=== PATIENT | female | born 1950 | race Caucasian/White ===

== ENCOUNTER → 2018-05-19 10:29 | Outpatient (CLI) | payer MEDICARE, SELFPAY ==
--- NOTE | 2018-05-19 10:41 | MM_ITS ---
MM Dig screening mamm BI w/CAD CAD Screening COMPARISON: Digital mammograms with CAD 01/01/2017 and is mammograms with CAD 12/10/2010 INDICATION: There is no personal or family history of breast cancer TECHNIQUE: Standard CC and MLO images were obtained. R2 CAD reviewed. FINDINGS: The breasts are composed primarily of fat with minimal scattered fibroglandular densities in each breast. There is a mole marker left breast. There is no suspicious lesion in either breast and there are no suspicious microcalcifications. IMPRESSION: Fatty type breast parenchyma with no suspicious lesion seen BI-RADS Category: 1 Negative RECOMMENDED FOLLOW-UP: 1YR - 1 YEAR FOLLOW-UP (A letter has been sent to the patient regarding results of the study.)
== END ==
PROVIDERS: PCP Family Medicine; Visit Provider Family Medicine
DX: Z12.31 Encounter for screening mammogram for malignant neoplasm of breast (principal)
CPT/HCPCS: 77067

== ENCOUNTER 2020-03-13 09:00 | Outpatient (RCR) | payer MEDICARE, SELFPAY | END 2020-03-13 09:05 | disposition home or self-care (01) | LOC: OT 09:00 | PROVIDERS: Visit Provider Family Medicine | DX: M75.101 Unspecified rotator cuff tear or rupture of right shoulder, not specified as traumatic (principal) | CPT/HCPCS: 97014; 97035; 97110; 97165; 97530; G0283 ==

== ENCOUNTER → 2020-09-02 15:31 | Outpatient (CLI) | payer MEDICARE, SELFPAY ==
[2020-09-02 17:13] LABS: Chloride 104 mmol/L (98-107)
[2020-09-02 17:14] LABS: Potassium 4.6 mmoL/L (3.5-5.1); Sodium 137 mmol/L (136-145)
[2020-09-02 17:16] LABS: Alanine Aminotransferase 28 U/L (12-78); Alkaline Phosphatase 61 U/L (38-126); Amylase 67 U/L (30-110); Anion Gap 12.6 mEq/L (5-15); Aspartate Amino Transferase 48 U/L (14-36); Bilirubin,Total 0.9 mg/dl (0.2-1.3); Blood Urea Nitrogen 25 mg/dl (7-17); Carbon Dioxide 25 mmol/L (22.0-30.0); Estimated Glomerular Filt Rate 55 ml/min (>60); GFR (African American) 67 ML/MIN (>60)
[2020-09-02 17:17] LABS: Albumin Level 4.7 g/dl (3.5-5.0); Albumin/Globulin Ratio 1.6 (1.1-1.8); Calcium 10.2 mg/dl (8.4-10.2); Globulin 2.9 g/dL (1.3-3.2); Glucose 104 mg/dl (74-100); Lipase 146 U/L (23-300); Total Protein,Serum 7.6 g/dl (6.3-8.2)
[2020-09-02 22:37] LABS: Basophils # 0.1 K/mm3 (0-0.2); Basophils % 0.9 % (0.1-2.0); Eosinophils # 0.1 K/mm3 (0.0-0.4); Eosinophils % 1.2 % (0.1-12.0); Hematocrit 44.4 % (37.0-47.0); Hemoglobin 14.1 g/dL (12.2-16.2); Lymphocytes # 2.6 K/mm3 (0.7-4.5); Lymphocytes % 28.3 % (10-50); Mean Corpuscular HGB Conc 31.7 g/dL (31.8-35.4); Mean Corpuscular Hemoglobin 28.2 pg (27.0-31.2); Mean Platelet Volume 10.1 fl (7.4-10.4); Monocytes # 0.7 K/mm3 (0.1-1.0); Monocytes % 7.8 % (1.7-9.3); Neutrophils # 5.6 K/mm3 (1.8-7.8); Neutrophils % 61.8 % (37.0-80.0); Platelet Count 327 K/mm3 (142-424); Red Blood Count 4.99 M/mm3 (4.20-5.40); Red Cell Distribution Width 14.4 % (11.5-17.5)
[2020-09-04 17:21] LABS: H. pylori Breath Test Negative (Negative)
== END ==
PROVIDERS: Visit Provider Nurse Practitioner Family
DX: R10.84 Generalized abdominal pain (principal); R10.13 Epigastric pain
CPT/HCPCS: 36415; 80053; 82150; 83013; 83690; 85025

== ENCOUNTER → 2021-11-07 11:56 | Outpatient (CLI) | payer MEDICARE, SELFPAY ==
--- NOTE | 2021-11-07 12:06 | XR_ITS ---
FINAL REPORT CLINICAL HISTORY: RIGHT HIP PAIN FINDINGS: RIGHT HIP Two views of the right hip demonstrate no acute fracture or dislocation. There is mild degenerative change. The visualized bony structures are well aligned. No soft tissue abnormality is seen. IMPRESSION: Mild degenerative change with no acute bony abnormality. Reviewed, Interpreted and Dictated by Shadi Amaral III, MD Transcribed by Magdalene Browne Authenticated and [facility]
--- NOTE | 2021-11-07 12:06 | XR_ITS ---
FINAL REPORT CLINICAL HISTORY: ACUTE PAIN OF RIGHT KNEE FINDINGS: Three views of the right knee reveal no evidence of fracture or dislocation. The bony alignment is normal. There is mild degenerative change. There is no evidence of joint effusion. No localized soft tissue abnormality is identified. IMPRESSION: Mild degenerative change with no acute abnormality identified. Reviewed, Interpreted and Dictated by Shadi Amaral III, MD Transcribed by Magdalene Browne Authenticated and [facility]
== END ==
PROVIDERS: PCP Nurse Practitioner Family; Visit Provider Nurse Practitioner Family
DX: M25.561 Pain in right knee (principal); M25.551 Pain in right hip
CPT/HCPCS: 73502; 73562

== ENCOUNTER → 2021-11-27 11:03 | Outpatient (CLI) | payer MEDICARE, SELFPAY ==
--- NOTE | 2021-11-27 11:18 | XR_ITS ---
FINAL REPORT CLINICAL HISTORY: back pain FINDINGS: LUMBAR SPINE 5 views of the lumbar spine were obtained. There is no evidence of fracture or dislocation. There is levoscoliosis. There is 8 mm of left lateral subluxation of L4 on L5. There is moderate and severe degenerative change. No paraspinous soft tissue abnormalities identified. IMPRESSION: Moderate and severe degenerative change. Left lateral subluxation of L4 on L5. Reviewed, Interpreted and Dictated by Shadi Amaral III, MD Transcribed by Meenu Wiley Authenticated and . [facility]
[2021-11-27 12:10] LABS: Basophils # 0.1 K/mm3 (0-0.2); Basophils % 0.8 % (0.1-2.0); Eosinophils # 0.4 K/mm3 (0.0-0.4); Eosinophils % 4.2 % (0.1-12.0); Hematocrit 41.6 % (37.0-47.0); Hemoglobin 13.5 g/dL (12.2-16.2); Lymphocytes # 2.5 K/mm3 (0.7-4.5); Lymphocytes % 28.5 % (10-50); Mean Corpuscular HGB Conc 32.5 g/dL (31.8-35.4); Mean Corpuscular Hemoglobin 28.2 pg (27.0-31.2); Mean Corpuscular Volume 86.5 fl (81-99); Mean Platelet Volume 7.9 fl (7.4-10.4); Monocytes # 0.5 K/mm3 (0.1-1.0); Monocytes % 5.9 % (1.7-9.3); Neutrophils # 5.4 K/mm3 (1.8-7.8); Neutrophils % 60.6 % (37.0-80.0); Platelet Count 327 K/mm3 (142-424); Red Blood Count 4.81 M/mm3 (4.20-5.40); Red Cell Distribution Width 13.9 % (11.5-17.5); White Blood Count 8.8 K/mm3 (4.8-10.8)
[2021-11-27 12:37] LABS: Chloride 103 mmol/L (98-107); Sodium 136 mmol/L (136-145)
[2021-11-27 12:38] LABS: Potassium 4.5 mmoL/L (3.5-5.1)
[2021-11-27 12:40] LABS: Alanine Aminotransferase 21 U/L (12-78); Albumin Level 4.5 g/dl (3.5-5.0); Albumin/Globulin Ratio 1.7 (1.1-1.8); Alkaline Phosphatase 79 U/L (38-126); Anion Gap 11.5 mEq/L (5-15); Aspartate Amino Transferase 35 U/L (14-36); Bilirubin,Total 0.6 mg/dl (0.2-1.3); Blood Urea Nitrogen 20 mg/dl (7-17); Calcium 10.2 mg/dl (8.4-10.2); Carbon Dioxide 26 mmol/L (22.0-30.0); Estimated Glomerular Filt Rate 62 ml/min (>60); GFR (African American) 75 ML/MIN (>60); Globulin 2.7 g/dL (1.3-3.2); Glucose 97 mg/dl (74-100); Total Protein,Serum 7.2 g/dl (6.3-8.2)
[2021-11-27 13:56] LABS: Vitamin B12 400 pg/mL (239-931)
== END ==
PROVIDERS: PCP Nurse Practitioner Family; Visit Provider Specialist
DX: G62.9 Polyneuropathy, unspecified (principal); M54.9 Dorsalgia, unspecified; T63.461A Toxic effect of venom of wasps, accidental (unintentional), initial encounter
CPT/HCPCS: 36415; 72110; 80053; 82607; 82746; 85025

== ENCOUNTER → 2021-12-10 13:05 | Outpatient (CLI) | payer MEDICARE, SELFPAY ==
--- NOTE | 2021-12-10 13:05 | MR_ITS ---
FINAL REPORT CLINICAL HISTORY: lower back pain pt c/o of right hip and knee pain x 2 months frequent falls FINDINGS: Multiplanar MR imaging of the lumbar spine was performed without contrast. There is 30 degrees of lumbar scoliosis convex to the left. On the sagittal T2-weighted images, there is abnormal decreased signal throughout the lumbar discs. There is moderate loss of disc height at L2-L3 through L5-S1. The vertebrae are of normal height. The vertebral alignment is normal. L1-2: There is no significant canal stenosis or neural foraminal narrowing. L2-3: There is a moderate diffuse disc bulge with posterolateral disc protrusions. There is moderate to high-grade right and moderate left neural foraminal narrowing. L3-4: There is a moderate diffuse disc bulge with endplate hypertrophy. There is moderate to high-grade right and mild left neural foraminal narrowing. L4-5: There is a moderate diffuse disc bulge with a broad-based midline disc protrusion. There is moderate to high-grade right and high-grade left neural foraminal narrowing. L5-S1: There is a diffuse disc bulge with endplate hypertrophy eccentric to the left and asymmetric left facet hypertrophy. There is high-grade left neural foraminal narrowing. IMPRESSION: High-grade left neural foraminal narrowing at L4-5 and L5-S1. Neural foraminal compromise on the right at L2-L3 and L3-L4. Reviewed, Interpreted and Dictated by Joshua Negro MD Transcribed by Alex Richardson Authenticated and [facility]
== END ==
PROVIDERS: PCP Nurse Practitioner Family; Visit Provider Specialist
DX: M47.27 Other spondylosis with radiculopathy, lumbosacral region (principal)
CPT/HCPCS: 72148; 76376

== ENCOUNTER → 2022-10-20 08:53 | Outpatient (CLI) | payer MEDICARE, SELFPAY ==
--- NOTE | 2022-10-20 08:59 | XR_ITS ---
FINAL REPORT TECHNIQUE: Bone densitometry calculations of the lumbar spine and left hip were obtained. CLINICAL HISTORY: . POST MENOPAUSAL SCREENING FINDINGS: Using L1-4, the bone mineral density of the spine is 0.901 g/cm2, corresponding to T-score of -1.3. This is likely falsely elevated secondary to hypertrophic change. Using the left hip, the bone mineral density of the femoral neck is 0.505 g/cm2, corresponding to a T-score of -3.1. Using the right hip, the bone mineral density of the femoral neck is 0.493 g/cm2, corresponding to a T-score of -3.2. NOTE: T-score: Standard deviation compared with peak bone mass of young adult mean. *Following the recommendations of the International Society of Bone Densitometry, classification of hip BMD is based on the lower of two T-scores; total hip or femoral neck. IMPRESSION: Osteoporosis: Lowest T-score is at or below -2.5. This patient''s T-score meets the World Health Organization criteria for osteoporosis. FRAX data was not reported because some of the T-scores are at or below-2.5. Reviewed, Interpreted and Dictated by Shadi Amaral III, MD Transcribed by Rosalind Sullivan Authenticated and [facility]
== END ==
PROVIDERS: PCP Nurse Practitioner Family; Visit Provider Nurse Practitioner Family
DX: M81.0 Age-related osteoporosis without current pathological fracture (principal)
CPT/HCPCS: 77080

== ENCOUNTER → 2022-11-10 11:45 | Outpatient (POV) | payer MEDICARE, SELFPAY | PROVIDERS: Visit Provider Dermatology | DX: Z00.00 Encounter for general adult medical examination without abnormal findings (principal) ==

== ENCOUNTER 2022-11-19 09:54 | Outpatient (CLI) | payer MEDICARE, SELFPAY ==
[2022-11-19 10:15] VITALS: BP 146/75; PULSE 72; RESP 18; O2SAT 99
== END 2022-11-19 10:25 | disposition home or self-care (01) ==
LOC: INF 09:56
PROVIDERS: PCP Nurse Practitioner Family; Visit Provider Nurse Practitioner Family
DX: M81.0 Age-related osteoporosis without current pathological fracture (principal)
CPT/HCPCS: 96372; J0897

== ENCOUNTER → 2023-01-12 14:44 | Outpatient (CLI) | payer MEDICARE, SELFPAY ==
--- NOTE | 2023-01-12 14:54 | XR_ITS ---
FINAL REPORT CLINICAL HISTORY: PAIN FINDINGS: Right hip Three views were obtained. There is no acute fracture or dislocation. There are mild degenerative changes. No soft tissue abnormality is identified. IMPRESSION: Mild degenerative changes. Reviewed, Interpreted and Dictated by Shadi Amaral III, MD Transcribed by Rosalind Sullivan Authenticated and [facility]
--- NOTE | 2023-01-12 14:54 | XR_ITS ---
FINAL REPORT CLINICAL HISTORY: PAIN FINDINGS: LUMBAR SPINE Five views demonstrate no acute fracture. There are severe degenerative changes. Levoscoliosis is identified. There is 9 mm of left lateral subluxation of L4 on 5. Multilevel facet arthropathy is identified. IMPRESSION: Severe degenerative changes. Reviewed, Interpreted and Dictated by Shadi Amaral III, MD Transcribed by Rosalind Sullivan Authenticated and [facility]
--- NOTE | 2023-01-12 14:54 | XR_ITS ---
FINAL REPORT CLINICAL HISTORY: PAIN FINDINGS: Left hip Three views were obtained. There is no acute fracture or dislocation. There are mild degenerative changes. No soft tissue abnormality is identified. IMPRESSION: Mild degenerative changes. Reviewed, Interpreted and Dictated by Shadi Amaral III, MD Transcribed by Rosalind Sullivan Authenticated and [facility]
== END ==
PROVIDERS: PCP Nurse Practitioner Family; Visit Provider Nurse Practitioner Family
DX: M54.50 Low back pain, unspecified (principal); M25.551 Pain in right hip; M25.552 Pain in left hip
CPT/HCPCS: 72110; 73502

== ENCOUNTER → 2023-01-22 14:31 | Outpatient (CLI) | payer MEDICARE, SELFPAY ==
--- NOTE | 2023-01-22 14:38 | MR_ITS ---
FINAL REPORT CLINICAL HISTORY: DORSALGIA OF LUMBAR REGION x 1 week unable to move right leg COMPARISON: 12/10/2021 FINDINGS: Multiplanar MR imaging of the lumbar spine was performed without contrast. On the sagittal T2-weighted images, there is abnormal decreased signal throughout the lumbar discs. The vertebrae are of normal height. There is a 40 degree scoliosis of the lumbar spine convex to the patient's left. There is loss of height of the L2-3, L3-4, and L4-5 discs. L1-2: There is a left posterolateral disc protrusion with moderate bilateral neural foraminal narrowing. L2-3: There is a right posterolateral disc protrusion with moderate bilateral neural foraminal narrowing. L3-4: There is a right posterolateral disc protrusion, with severe bilateral neural foraminal narrowing. L4-5: There is a large annular bulge with facet osteoarthropathy and severe bilateral neural foraminal narrowing. L5-S1: There is endplate heterotrophic change eccentric and to the left producing severe left neural foraminal narrowing. IMPRESSION: 40 degree degenerative scoliosis convex to the left. Multilevel lumbar degenerative change with disc space narrowing at multiple levels and neural foraminal narrowing at multiple levels. The neural foraminal narrowing is most severe on the right side at the L2-3, L3-4, and L4-5 levels, and most severe on the left side at the L1-2, L4-5 and L5-S1 levels. Reviewed, Interpreted and Dictated by Joshua Negro MD Transcribed by Candis Ramirez Authenticated and [facility]
== END ==
LOC: RAD 14:32
PROVIDERS: PCP Nurse Practitioner Family; Visit Provider Nurse Practitioner Family
DX: M54.50 Low back pain, unspecified (principal); M54.16 Radiculopathy, lumbar region
CPT/HCPCS: 72148; 76376

== ENCOUNTER → 2023-02-24 09:06 | Outpatient (POV) | payer MEDICARE, SELFPAY ==
--- NOTE | 2023-02-24 09:40 | EXP.PAIN.OV ---
HPI Data of Consult Patient: new to practice Consult date: 02/24/23 Requesting Physician: Radha Martinez APRN Primary Care Provider: Ro Rider APRN Consult Narrative Reason for consult: Low back pain History of present illness: Ms. Wiley is a 72 year old female who presents today as a new patient. She is a referral from Brie Rider's office. Today she rates her pain an 8 out of 10. Patient states her pain is all in her low back with radiating symptoms into her lower extremities. Patient states this has been going on at least for 5 years and unrelated to any specific trauma or injury. She does describe this as a achy sensation that is worse with walking or increased activity. She states she does get some improvement when she rests or sits. She states she frequently lays back in her recliner at home. Patient has tried [id number] Tylenol and ibuprofen along with heat and ice with minimal relief. Patient states she has had physical therapy with no additional change to her pain. She states that she used to walk very actively however due to her worsening pain that she has been able to do this activity/exercise as often. 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 Patient denies any previous surgery or injection history. Patient does state that she is unsure if she wants to proceed forward with any type of injection or medication. She does state that she is not interested in any physical therapy. She does state that she was tried on tramadol 50 mg 3 times a day and that at her last visit they had talked about a medication of cyclobenzaprine however this was not given to her. She states that she did get a letter in the mail stating that it had been approved. Her Pablo is [id number]. Its been reviewed and appropriate. CC: Radha Martinez APRN [facility] Disclaimer: The information contained in this section may have been updated after the patient was seen, as this information can be updated by other users. Medical History (Updated 02/24/23 @ 10:33 by Radha Martinez APRN) Depression Hypertension Osteoporosis Surgical History (Updated 01/29/23 @ 11:59 by Valdo Joy LPN) H/O section History of cholecystectomy Family History (Updated 09/01/23 @ 12:01 by Valdo Joy LPN) Father Stroke Diabetes Mother Hypertension Alzheimer disease Social History (Updated 01/29/23 @ 11:51 by Valdo Joy LPN) Smoking Status: Never smoker alcohol intake: never substance use type: denies use current occupational status: retired Travel in the last 8 weeks: None household members: spouse housing: house Review of Systems Review of Systems Review of systems:: pertinent systems reviewed and negative unless documented below Review of systems (narrative): Review of Systems: General: No recent weight changes, no fever, no sleep disturbances Respiratory: No cough, no shortness of air, no recurring pulmonary infections Cardiovascular/peripheral vascular: No chest pain, no palpitations, no edema, no shortness of breath Gastrointestinal: No new onset incontinence, normal bowel movements reported Genitourinary: No new onset incontinence Musculoskeletal: Low back pain, bilateral leg pain Psychiatric: [Normal mood/affect] Neurological: [Denies weakness in extremities], [denies balance issues] Meds Home Medications and Allergies Home Medications Medication Instructions Recorded Confirmed Type alendronate 70 mg tablet 70 mg PO WEEKLY bones 01/01/18 01/29/23 History aspirin 81 mg tablet,delayed 81 mg PO DAILY Heart disease 01/01/18 01/29/23 History release omeprazole 20 mg capsule,delayed 20 mg pe PO DAILY GERD 01/01/18 01/29/23 History release amlodipine 2.5 mg tablet 2.5 mg PO DAILY 11/27/21 01/29/23 History bisoprolol fumarate 5 mg tablet 5 mg PO DAILY 11/27/21 01/29/23 History cholecalciferol (vitamin
[2023-02-24 12:32] VITALS: BP 140/84; PULSE 59; RESP 18; O2SAT 95; BMI 29.9
== END ==
PROVIDERS: PCP Nurse Practitioner Family; Visit Provider Nurse Practitioner Family
DX: M54.50 Low back pain, unspecified; G89.29 Other chronic pain; M48.062 Spinal stenosis, lumbar region with neurogenic claudication; M51.16 Intervertebral disc disorders with radiculopathy, lumbar region
CPT/HCPCS: 99202; G0463

== ENCOUNTER → 2023-05-05 12:02 | Outpatient (CLI) | payer MEDICARE, SELFPAY ==
[2023-05-05 12:15] LABS: Alanine Aminotransferase 23 U/L (12-78); Albumin Level 4.2 g/dl (3.5-5.0); Albumin/Globulin Ratio 1.6 (1.1-1.8); Alkaline Phosphatase 59 U/L (38-126); Anion Gap 11.1 mEq/L (5-15); Aspartate Amino Transferase 29 U/L (14-36); Bilirubin,Total 0.4 mg/dl (0.2-1.3); Blood Urea Nitrogen 21 mg/dl (7-17); Carbon Dioxide 24 mmol/L (22.0-30.0); Chloride 104 mmol/L (98-107); Estimated Glomerular Filt Rate 62 ml/min (>60); GFR (African American) 75 ML/MIN (>60); Globulin 2.7 g/dL (1.3-3.2); Glucose 87 mg/dl (74-100); Potassium 4.1 mmoL/L (3.5-5.1); Sodium 135 mmol/L (136-145); Total Protein,Serum 6.9 g/dl (6.3-8.2)
== END ==
PROVIDERS: PCP Nurse Practitioner Family; Visit Provider Nurse Practitioner Family
DX: M81.0 Age-related osteoporosis without current pathological fracture (principal)
CPT/HCPCS: 80053

== ENCOUNTER 2023-05-25 10:12 | Outpatient (CLI) | payer MEDICARE, SELFPAY ==
[2023-05-25 11:28] VITALS: BP 157/72; PULSE 61; RESP 16; TEMP 36.8; O2SAT 98
[2023-05-25] MEDS: DENOSUMAB 60 MG/ML SYRINGE SQ (11:28)
[2023-05-25 11:45] VITALS: BP 156/79; PULSE 65; RESP 16; TEMP 36.8; O2SAT 98
== END 2023-05-25 11:45 | disposition home or self-care (01) ==
LOC: INF 10:13
PROVIDERS: PCP Nurse Practitioner Family; Visit Provider Nurse Practitioner Family
DX: M81.0 Age-related osteoporosis without current pathological fracture (principal)
CPT/HCPCS: 96372; J0897

== ENCOUNTER 2023-11-26 12:47 | Outpatient (CLI) | payer MEDICARE, SELFPAY ==
[2023-11-26 12:59] VITALS: BP 138/73; PULSE 65; RESP 18; TEMP 36.6; O2SAT 96
[2023-11-26] MEDS: DENOSUMAB 60 MG/ML SYRINGE SQ (12:59)
== END 2023-11-26 13:29 | disposition home or self-care (01) ==
LOC: INF 12:48
PROVIDERS: PCP Nurse Practitioner Family; Visit Provider Nurse Practitioner Family
DX: M81.0 Age-related osteoporosis without current pathological fracture (principal); Z79.899 Other long term (current) drug therapy
CPT/HCPCS: 96372; J0897

== ENCOUNTER 2024-01-21 11:10 | Emergency (ER) | payer MEDICARE, SELFPAY ==
--- NOTE | 2024-01-21 11:42 | EXP.UTC ---
Discharge Plan Disposition Patient Disposition: Home, Self-Care Condition: Good Prescriptions Prescriptions: New nitrofurantoin monohyd/m-cryst [Macrobid] 100 mg Capsule 100 mg PO BID Qty: 10 0RF Rx Instructions: must administer with a meal/food No Action cholecalciferol (vitamin D3) 50 mcg (2,000 unit) tablet 50 mcg PO DAILY calcium carbonate 400 mg/5 mL suspension 400 mg PO DAILY Rx Instructions: Takes 2 tablespoon daily cyclobenzaprine 10 mg tablet 10 mg PO HS PRN (Reason: back pain) 30 Days Qty: 30 2RF doxycycline hyclate 100 mg capsule 100 mg PO BID 10 Days Qty: 20 0RF prednisone 5 mg tablets,dose pack 5 mg PO DIRECTED 6 Days Qty: 6 0RF Rx Instructions: see taper instructions albuterol sulfate 90 mcg/actuation HFA aerosol inhaler 2 puff inhalation Q4-6H PRN (Reason: shortness of breath or wheezing) Qty: 8.5 0RF Prolia 60 mg/mL syringe 60 mg SQ [id number] Qty: 1 0RF amlodipine 2.5 mg tablet 2.5 mg PO DAILY Qty: 90 1RF bisoprolol fumarate 5 mg tablet 5 mg PO DAILY Qty: 90 1RF lisinopril 40 mg tablet 40 mg PO DAILY Qty: 90 3RF fluoxetine 20 mg capsule 60 mg PO DAILY 90 Days Qty: 270 3RF omeprazole 20 mg capsule,delayed release(DR/EC) 20 mg PO DAILY 90 Days Qty: 90 3RF aspirin 81 MG tablet,delayed release (DR/EC) 81 mg PO DAILY Referrals Follow up/Referrals: Ro Rider APRN [Primary Care Provider] - See instructions Activity Restrictions/Add. Instructions Additional Instructions/Restrictions: Drink plenty of fluids. Take tylenol or ibuprofen for pain or fever. Take the medications as directed. Follow up with your regular doctor. GO TO THE ER FOR ANY WORSENING SYMPTOMS We will culture the urine. That will tell what bacteria is causing your infection and which antibiotics will treat it best. Sometimes the first antibiotic we prescribe turns out to not work against different bacteria. So, make sure you follow up within 3 days if you are not getting better. Clinical Impressions Clinical Impression: Acute UTI Instructions Patient Instructions: DI for Urinary Tract Infection (UTI), Urine Culture, Nitrofurantoin Print Language Print Language: Albanian Discharge ED Provider: Leo Gregg [facility] HPI General Stated complaint: vaginal bleeding Time Seen by Provider: 01/21/24 11:41 Related Data Home Medications ?Medication ?Instructions ?Recorded ?Confirmed aspirin 81 mg tablet,delayed 81 mg PO DAILY Heart disease 01/01/18 11/26/23 release cholecalciferol (vitamin D3) 50 50 mcg PO DAILY SUPPLIMENT 11/27/21 11/26/23 mcg (2,000 unit) tablet calcium carbonate 400 mg/5 mL oral 400 mg PO DAILY SUPPLIMENT 01/29/23 11/26/23 suspension Previous Rx's ?Medication ?Instructions ?Recorded cyclobenzaprine 10 mg tablet 10 mg PO HS PRN back pain 30 days 01/29/23 #30 tabs albuterol sulfate 90 mcg/actuation 2 puff inhalation Q4-6H PRN 09/28/23 aerosol inhaler shortness of breath or wheezing #8.5 grams doxycycline hyclate 100 mg capsule 100 mg PO BID 10 days #20 caps 09/28/23 prednisone 5 mg tablets in a dose 5 mg PO DIRECTED 6 days #6 tabs 09/28/23 pack denosumab 60 mg/mL subcutaneous 60 mg SQ [id number] OSTEOARTHRITIS 11/19/23 syringe (Prolia) #1 mL amlodipine 2.5 mg tablet 2.5 mg PO DAILY BLOOD PRESSURE #90 11/29/23 tabs bisoprolol fumarate 5 mg tablet 5 mg PO DAILY BLOOD PRESSURE #90 11/29/23 tabs lisinopril 40 mg tablet 40 mg PO DAILY BLOOD PRESSURE #90 12/24/23 tabs fluoxetine 20 mg capsule 60 mg (3 x 20 mg) PO DAILY 90 days 01/12/24 #270 caps omeprazole 20 mg capsule,delayed 20 mg PO DAILY GERD 90 days #90 01/12/24 release caps nitrofurantoin 100 mg PO BID #10 caps 01/21/24 monohydrate/macrocrystals 100 mg capsule (Macrobid) Allergies Allergy/AdvReac Type Severity Reaction Status Date / Time Penicillins Allergy Intermediate I-HIVES Verified 11/26/23 13:28 [facility] Disclaimer: The information contained in this section may have been updated after the patient was seen, as this information can be updated by other users. Medical History Depression Hypertension Osteoporosis Surgical History H/O section History of cholecystectomy Family History Father Stroke Diabetes Mother Hypertension Alzheimer disease Social History (Updated 11/26/23 @ 13:13 by Shekhar Claudio RN) Smoking Status: Never smoker alcohol intake: never substance use type: denies use current occupational status: retired Travel in the last 8 weeks: None household members: spouse housing: house ROS Obtained: Yes All systems reviewed & no additional complaints except as documented Constitutional Constitutional: Reports system reviewed and no additional complaints, except as documented, Denies chills and Denies fever(s) Eyes Eyes: Denies eye discharge ENT Ears, Nose, Mouth, and Throat: Denies dysphagia, Denies sore throat and Denies throat swelling Cardiovascular Cardiovascular: Denies chest pain and Denies dyspnea Respiratory Respiratory: Denies chest congestion, Denies cough and Denies dyspnea Gastrointestinal Gastrointestingal: Denies abdominal pain, constipation, diarrhea, dysphagia, nausea or vomiting Genitourinary Female Genitourinary: Reports as per HPI, Reports dysuria, Reports sexual dysfunction, Reports urinary frequency, Denies urinary incontinence and Reports urinary hesitancy Musculoskeletal Musculoskeletal: Denies arthralgias and Reports back pain Integumentary/Breasts Skin/Breast: Denies rash Neurologic Neurologic: Denies paresthesias Allergic/Immunologic Allergic/Immunologic: Denies throat swelling Physical Exam General General appearance: alert and in no apparent distress Head Head exam: atraumatic and normocephalic Eye Eye exam: Present normal appearance, PERRL and EOMI ENT ENT exam: Present normal exam, mucous membranes moist, TM's normal bilaterally and normal external ear exam Neck Neck exam: Present normal inspection, full ROM and trachea midline; Absent tenderness, meningismus or lymphadenopathy Chest Chest inspection: Present normal inspection and symmetric chest wall rise; Absent tenderness Respiratory Respiratory exam: Present normal lung sounds bilaterally; Absent respiratory distress, wheezes or stridor Cardiovascular Cardiovascular exam: Present regular rate, normal rhythm and normal heart sounds Abdominal Exam Abdominal exam: Present soft and normal bowel sounds; Absent distention, tenderness, guarding, rebound, rigidity, incision, psoas sign, obturator sign, heel tap sign, Mims's sign, Rovsing's sign or tenderness at McBurney's Point Extremities Exam Extremities exam: Present normal inspection, full ROM and normal capillary refill; Absent tenderness, edema, joint swelling, calf tenderness or cyanosis Back Exam Back exam: Present normal inspection and full ROM; Absent tenderness, CVA tenderness (R) or CVA tenderness (L) Neurological Exam Neurological exam: Present alert, oriented X3 and normal gait Psychiatric Psychiatric exam: Present normal affect and normal mood Skin Skin exam: Present warm, dry, intact and normal color Lymphatic Lymphatic Findings: no adenopathy Medical Decision Making Medical Records Medical records reviewed: No I reviewed the patient's medical records. Pablo Inquiry Pt receiving controlled substance: No Lab Data Lab results reviewed: Yes I reviewed the patient's lab results.
[2024-01-21 11:50] VITALS: BP 149/81; PULSE 58; RESP 18; TEMP 36.8; O2SAT 97; BMI 30.2
[2024-01-21 11:54] LABS: Apearance,Urine Clear (Clear); Color,Urine Red (Yellow); PH,Urine 6.5 (5.0-8.5)
[2024-01-21 11:55] LABS: Bilirubin,Urine 2+ (Negative); Blood, Urine 3+ (Negative); Glucose,Urine (UA) Negative (Negative); Ketones,Urine Negative (Negative); Protein,Urine 3+ (Negative)
[2024-01-21 11:56] LABS: UTC Leukocyte Esterase,Urine 3+ (Negative); UTC Nitrate,Urine Positive (Negative); Urobilinogen,Urine 2 EU/dl (0.2)
[2024-01-21 12:38] LABS: Microscopic, Urine URINE MICROSCOPIC (MICROSCOPIC)
[2024-01-21 12:41] VITALS: BP 149/81; PULSE 58; RESP 19; TEMP 36.8; O2SAT 97
[2024-01-21 12:46] LABS: Appearance,Urine CLOUDY (Clear); Blood, Urine 3+ (Negative); Color,Urine AMBER (Yellow); Glucose,Urine (UA) TRACE (Negative); Ketones,Urine TRACE (Negative); Leukocyte Esterase,Urine 2+ (Negative); Nitrate,Urine POSITIVE (Negative); PH,Urine 6.5 (5.0-8.5); Protein,Urine 2+ (Negative); Specific Gravity, Urine 1.025 (1.005-1.030)
[2024-01-21 12:52] LABS: Bilirubin,Urine 1+ (Negative)
[2024-01-21 13:10] LABS: Bacteria,Urine 2+ /lpf; RBC,Urine TNTC #/hpf (0-3)
== END 2024-01-21 12:42 | disposition home or self-care (01) ==
PROVIDERS: Emergency Provider Nurse Practitioner Family; PCP Nurse Practitioner Family
DX: N39.0 Urinary tract infection, site not specified (principal); B96.29 Other Escherichia coli [E. coli] as the cause of diseases classified elsewhere
CPT/HCPCS: 81001; 81003; 87086; 87088; 87186; 99204; 99212; G0463

== ENCOUNTER 2024-01-28 09:48 | Outpatient (CLI) | payer MEDICARE, SELFPAY ==
[2024-01-28 15:56] LABS: Basophils # 0.1 K/mm3 (0-0.2); Basophils % 1.1 % (0.1-2.0); Eosinophils # 0.2 K/mm3 (0.0-0.4); Eosinophils % 2.7 % (0.1-12.0); Hematocrit 43.2 % (37.0-47.0); Hemoglobin 13.6 g/dL (12.2-16.2); Lymphocytes # 2.1 K/mm3 (0.7-4.5); Lymphocytes % 27.3 % (10-50); Mean Corpuscular HGB Conc 31.5 g/dL (31.8-35.4); Mean Corpuscular Hemoglobin 29.1 pg (27.0-31.2); Mean Corpuscular Volume 92.4 fl (81-99); Mean Platelet Volume 9.6 fl (7.4-10.4); Monocytes # 0.5 K/mm3 (0.1-1.0); Monocytes % 6.7 % (1.7-9.3); Neutrophils # 4.9 K/mm3 (1.8-7.8); Neutrophils % 62.2 % (37.0-80.0); Platelet Count 328 K/mm3 (142-424); Red Blood Count 4.67 M/mm3 (4.20-5.40); Red Cell Distribution Width 14.5 % (11.5-17.5); White Blood Count 7.8 K/mm3 (4.8-10.8)
[2024-01-28 16:38] LABS: Alanine Aminotransferase 23 U/L (12-78); Albumin/Globulin Ratio 1.4 (1.1-1.8); Alkaline Phosphatase 53 U/L (38-126); Anion Gap 13.3 mEq/L (5-15); Aspartate Amino Transferase 31 U/L (14-36); Bilirubin,Total 0.6 mg/dl (0.2-1.3); Blood Urea Nitrogen 21 mg/dl (7-17); Calcium 10.1 mg/dl (8.4-10.2); Carbon Dioxide 23 mmol/L (22.0-30.0); Chloride 106 mmol/L (98-107); Chol/HDL Ratio 3.8 (1-3.5); Cholesterol 226 mg/dl (140-200); Estimated Glomerular Filt Rate 71 ml/min (>60); GFR (African American) 85 ML/MIN (>60); Globulin 2.9 g/dL (1.3-3.2); Glucose 79 mg/dl (74-100); HDL Cholesterol 59 mg/dl (40-60); Magnesium 1.8 mg/dl (1.6-2.3); Potassium 4.3 mmoL/L (3.5-5.1); Sodium 138 mmol/L (136-145); Total Protein,Serum 6.9 g/dl (6.3-8.2); Triglycerides 140 mg/dl (30-150); VLDL Cholesterol 28 mg/dL (0-40)
[2024-01-28 17:09] LABS: Thyroid Stimulating Hormone 1.82 uIU/mL (0.465-4.68)
[2024-01-28 17:28] LABS: Vitamin B12 654 pg/mL (239-931)
[2024-01-28 19:12] LABS: Direct LDL Cholesterol 132.48 mg/dL (100-129)
[2024-01-28 19:39] LABS: Ferritin 108 ng/ml (11.1-264)
[2024-01-30 06:46] LABS: Triiodothyronine (T3) Free 2.7 pg/mL (2.0-4.4)
== END 2024-01-28 23:59 | disposition home or self-care (01) ==
LOC: LAB.DROPOF 01-31 09:49
PROVIDERS: PCP Nurse Practitioner Family; Visit Provider Nurse Practitioner Family
DX: I10 Essential (primary) hypertension (principal); R53.83 Other fatigue; D64.9 Anemia, unspecified; N39.0 Urinary tract infection, site not specified
CPT/HCPCS: 80050; 80053; 80061; 82607; 82728; 83735; 84443; 84481; 85025

== ENCOUNTER 2024-05-15 11:32 | Outpatient (CLI) | payer MEDICARE, SELFPAY | END 2024-05-15 23:59 | disposition home or self-care (01) | LOC: LAB.DROPOF 05-16 11:32 | PROVIDERS: PCP Nurse Practitioner Family; Visit Provider Nurse Practitioner Family | DX: N39.0 Urinary tract infection, site not specified (principal); R35.0 Frequency of micturition | CPT/HCPCS: 87086; 87088; 87186 ==

== ENCOUNTER 2024-09-28 05:57 | Emergency (ER) | payer MEDICARE, SELFPAY ==
[2024-09-28] VITALS (12 sets, daily range): BP systolic 165–199; BP diastolic 68–99; PULSE 61–78; RESP 11–30; TEMP 36.7–36.9; O2SAT 91–99; BMI 30.2
--- NOTE | 2024-09-28 06:00 | CT_ITS ---
FINAL REPORT TECHNIQUE: After the administration of intravenous contrast, axial images were obtained through the abdomen and pelvis by computed tomography. This study was performed with technique to keep radiation doses as low as reasonably achievable, (ALARA). Individualized dose reduction techniques using automated exposure control or adjustment of the MA and/or KV according to the patient's size were employed. CLINICAL HISTORY: L flank pain x2 days FINDINGS: Abdomen: The lung bases demonstrate scarring or atelectasis. Patient is status postcholecystectomy. There is mild intra and extrahepatic biliary ductal dilatation. There is no evidence of choledocholithiasis. The liver is normal in size and attenuation. The spleen is unremarkable. The adrenals are normal. The pancreas is unremarkable. There are small bilateral renal cysts. Kidneys are otherwise normal. The aorta is normal in caliber. There is no free fluid or adenopathy. Pelvis: The appendix is not identified. The urinary bladder is unremarkable. There is no free fluid or adenopathy. Enlargement of stool seen throughout the colon. There is 40 degrees of lumbar scoliosis convex to the left. IMPRESSION: Constipation. Reviewed, Interpreted and Dictated by Joshua Negro MD Transcribed by Carla Eastman Authenticated and [facility]
--- NOTE | 2024-09-28 06:00 | XR_ITS ---
FINAL REPORT CLINICAL HISTORY: Left flank pain COMPARISON: 12/21/2018 FINDINGS: A single view of the chest was obtained. The heart size is normal. The mediastinum is normal. There is scarring or atelectasis in the right infrahilar region. There are no pleural effusions. There is no pneumothorax. There is no osseous abnormality. IMPRESSION: Scarring or atelectasis right infrahilar region. Reviewed, Interpreted and Dictated by Joshua Negro MD Transcribed by Aubrie Cobb Authenticated and [facility]
--- NOTE | 2024-09-28 06:03 | HMH.EDGENADL ---
Discharge Plan Disposition Patient Disposition: Home, Self-Care Prescriptions Prescriptions: New prednisone 20 mg tablet 40 mg PO DAILY 5 Days Qty: 10 0RF No Action cholecalciferol (vitamin D3) 50 mcg (2,000 unit) tablet 50 mcg PO DAILY calcium carbonate 400 mg/5 mL suspension 400 mg PO DAILY Rx Instructions: Takes 2 tablespoon daily cyclobenzaprine 10 mg tablet 10 mg PO HS PRN (Reason: back pain) 30 Days Qty: 30 2RF albuterol sulfate 90 mcg/actuation HFA aerosol inhaler 2 puff inhalation Q4-6H PRN (Reason: shortness of breath or wheezing) Qty: 8.5 0RF ciprofloxacin HCl [Cipro] 500 mg tablet 500 mg PO BID 10 Days Qty: 20 0RF fluoxetine 60 mg tablet 60 mg PO Patient Comments: TAKE 1 TABLET BY MOUTH ONCE DAILY FOR MOOD Prolia 60 mg/mL syringe 60 mg SQ [id number] Qty: 1 0RF fluoxetine 20 mg capsule 60 mg PO DAILY 90 Days Qty: 270 3RF omeprazole 20 mg capsule,delayed release(DR/EC) 20 mg PO DAILY 90 Days Qty: 90 3RF amlodipine 2.5 mg tablet See Rx Instructions .ROUTE .COMPLEX Qty: 90 0RF Dose Instruction: Take 1 tablet by mouth once daily for blood pressure Rx Instructions: Take 1 tablet by mouth once daily for blood pressure bisoprolol fumarate 5 mg tablet See Rx Instructions .ROUTE .COMPLEX Qty: 90 0RF Dose Instruction: Take 1 tablet by mouth once daily for blood pressure Rx Instructions: Take 1 tablet by mouth once daily for blood pressure lisinopril 30 mg tablet See Rx Instructions .ROUTE .COMPLEX Qty: 90 0RF Dose Instruction: Take 1 tablet by mouth once daily for blood pressure Rx Instructions: Take 1 tablet by mouth once daily for blood pressure aspirin 81 MG tablet,delayed release (DR/EC) 81 mg PO DAILY Referrals Follow up/Referrals: Ro Rider APRN [Primary Care Provider] - See instructions Activity Restrictions/Add. Instructions Additional Instructions/Restrictions: Call your family doctor to establish care for this visit to the emergency department and schedule follow-up within 48 hours to ensure improvement. If you have any worsening of your condition or any other concerning signs or symptoms, return to the emergency department or your primary care doctor for further evaluation. Take Tylenol 1000 mg every 6 hours (4 times daily) and ibuprofen 400 mg every 6 hours (4 times daily) as needed with food and water to prevent GI upset and kidney damage. Clinical Impressions Clinical Impression: Thoracic radiculopathy Instructions Patient Instructions: DI for Low Back Pain Print Language Print Language: [place] Discharge ED Provider: Anthony Dunlap General Adult HPI <Angie Edmondson MD - Last Filed: 09/28/24 06:59> General Chief complaint: Back Pain/Injury Stated complaint: back pain Time Seen by Provider: 09/28/24 06:00 History of Present Illness HPI narrative: 74-year-old female with history of hypertension, degenerative disc disease, previous episodes of hematuria presents to the ER with concerns of left flank pain for the last 2 days. Patient reports sharp left flank pain that sometimes waxes and wanes slightly but never goes away. She took Tylenol prior to arrival without improvement of symptoms. Reportedly not having any vomiting, dysuria, or hematuria. She reports that the pain is in the left flank near the kidney but also radiates through to the abdomen. No chest pain or difficulty breathing. No numbness, tingling, or weakness. No fevers or chills. No other associated symptoms. Patient is a poor historian. Related Data Home Medications ?Medication ?Instructions ?Recorded ?Confirmed aspirin 81 mg tablet,delayed 81 mg PO DAILY Heart disease 01/01/18 05/15/24 release cholecalciferol (vitamin D3) 50 50 mcg PO DAILY SUPPLIMENT 11/27/21 05/15/24 mcg (2,000 unit) tablet calcium carbonate 400 mg/5 mL oral 400 mg PO DAILY SUPPLIMENT 01/29/23 05/15/24 suspension fluoxetine 60 mg tablet 60 mg PO 02/11/24 05/15/24 Previous Rx's ?Medication ?Instructions ?Recorded cyclobenzaprine 10 mg tablet 10 mg PO HS PRN back pain 30 days 01/29/23 #30 tabs albuterol sulfate 90 mcg/actuation 2 puff inhalation Q4-6H PRN 09/28/23 aerosol inhaler shortness of breath or wheezing #8.5 grams denosumab 60 mg/mL subcutaneous 60 mg SQ [id number] OSTEOARTHRITIS 11/19/23 syringe (Prolia) #1 mL fluoxetine 20 mg capsule 60 mg (3 x 20 mg) PO DAILY 90 days 01/12/24 #270 caps omeprazole 20 mg capsule,delayed 20 mg PO DAILY GERD 90 days #90 01/12/24 release caps amlodipine 2.5 mg tablet See Rx Instructions .Route 05/03/24 .COMPLEX #90 tabs ciprofloxacin HCl 500 mg tablet 500 mg PO BID 10 days #20 tabs 05/15/24 (Cipro) bisoprolol fumarate 5 mg tablet See Rx Instructions .Route 09/11/24 .COMPLEX #90 tabs lisinopril 30 mg tablet See Rx Instructions .Route 09/11/24 .COMPLEX #90 tabs prednisone 20 mg tablet 40 mg (2 x 20 mg) PO DAILY 5 days 09/28/24 #10 tabs Allergies Allergy/AdvReac Type Severity Reaction Status Date / Time Penicillins Allergy Intermediate I-HIVES Verified 05/15/24 11:20 PFS <Angie Edmondson MD - Last Filed: 09/28/24 06:59> COUNTS INCLUDE 234 BEDS AT THE [facility] Disclaimer: The information contained in this section may have been updated after the patient was seen, as this information can be updated by other users. Medical History Osteoporosis Depression Hypertension Surgical History H/O section History of cholecystectomy Family History Father Stroke Diabetes Mother Hypertension Alzheimer disease Social History Smoking Status: Never smoker alcohol intake: never substance use type: denies use current occupational status: retired Travel in the last 8 weeks?: None household members: spouse housing: house Other Medical History Have you received the Flu Vaccine for this season: Yes Have you received the Pneumonia Vaccine: Yes <Angie Edmondson MD - Last Filed: 09/28/24 06:59> ROS Obtained: Yes Systems reviewed as appropriate & no additional complaints except as documented Per HPI Physical Exam <Angie Edmondson MD - Last Filed: 09/28/24 06:59> General General appearance: alert and in no apparent distress Comment: Uncomfortable but nontoxic-appearing Head Head exam: atraumatic and normocephalic Eye Eye exam: Present PERRL and EOMI ENT ENT exam: Present mucous membranes moist Neck Neck exam: Present normal inspection and full ROM Chest Chest inspection: Present symmetric chest wall rise Respiratory Respiratory exam: Present normal lung sounds bilaterally and other (Tachypneic secondary to pain but no respiratory distress); Absent respiratory distress, wheezes or stridor Cardiovascular Cardiovascular exam: Present regular rate and normal rhythm Abdominal Exam Abdominal exam: Present soft; Absent distention, tenderness, guarding or rebound Extremities Exam Extremities exam: Present full ROM; Absent edema Back Exam Back exam: Present CVA tenderness (L); Absent CVA tenderness (R) Neurological Exam Neurological exam: Present alert and oriented X3; Absent motor sensory deficit Psychiatric Psychiatric exam: Present normal affect and normal mood Skin Skin exam: Present warm and dry Medical Decision Making <Angie Edmondson MD - Last Filed: 09/28/24 06:59> Medical Records Medical records reviewed: Yes I reviewed the patient's medical records. Screening: Per USPSTF and CDC recommendations, given the prevalence of disease in our region, it is our hospital?s policy to screen for HIV and viral Hepatitis for all patients aged 18 and over and those with ongoing risk factors. MR Comment: Patient was evaluated by Ro Rider in April 2024 for hematuria. She is also having dysuria. She was treated with ciprofloxacin for UTI. Urine culture at that time grew pansensitive E. coli. Pablo Inquiry Pt receiving controlled substance: No Vital Signs: 09/28/24 06:08 09/28/24 06:09 09/28/24 06:30 Temperature 98.1 F Temperature Source Oral Pulse Rate 61 70 Pulse Rate [Radial] 68 Respiratory Rate 27 H 28 H 30 H Blood Pressure 183/99 H 175/86 H Blood Pressure [Right Arm] 183/99 H Blood Pressure Mean Blood Pressure Mean [Right Arm] 127 Blood Pressure Source Blood Pressure Position Blood Pressure Position [Right Arm] Sitting 02 Sat by Pulse Oximetry 99 99 91 L Oxygen Delivery Method Room Air 09/28/24 06:45 09/28/24 07:30 09/28/24 08:00 Temperature Temperature Source Pulse Rate 63 73 73 Pulse Rate [Radial] Respiratory Rate 16 13 11 L Blood Pressure 180/89 H 177/92 H Blood Pressure [Right Arm] Blood Pressure Mean 109 Blood Pressure Mean [Right Arm] Blood Pressure Source Blood Pressure Position Blood Pressure Position [Right Arm] 02 Sat by Pulse Oximetry 98 99 96 Oxygen Delivery Method Room Air 09/28/24 08:30 09/28/24 08:51 09/28/24 09:01 Temperature Temperature Source Pulse Rate 73 78 75 Pulse Rate [Radial] Respiratory Rate 13 17 16 Blood Pressure 186/94 H 193/92 H 182/81 H Blood Pressure [Right Arm] Blood Pressure Mean Blood Pressure Mean [Right Arm] Blood Pressure Source Blood Pressure Position Blood Pressure Position [Right Arm] 02 Sat by Pulse Oximetry 96 94 L 95 Oxygen Delivery Method Room Air Room Air Room Air 09/28/24 09:30 09/28/24 09:35 09/28/24 09:40 Temperature 98.4 F Temperature Source Oral Pulse Rate 74 72 66 Pulse Rate [Radial] Respiratory Rate 15 14 15 Blood Pressure 199/99 H 189/93 H 165/68 H Blood Pressure [Right Arm] Blood Pressure Mean Blood Pressure Mean [Right Arm] Blood Pressure Source Automatic Cuff Blood Pressure Position Supine Blood Pressure Position [Right Arm] 02 Sat by Pulse Oximetry 93 L 95 Oxygen Delivery Method Room Air Room Air Room Air Lab Data Lab Results 09/28/24 06:09: WBC 10.2, RBC 4.59, Hgb 13.1, Hct 39.5, MCV 86.1, MCH 28.5, MCHC 33.2, RDW 14.5, Plt Count 292, MPV 10.1, Neut % (Auto) 75.3, Lymph % (Auto) 17.7, Mellette % (Auto) 5.9, Eos % (Auto) 0.2, Baso % (Auto) 0.5, Neut # (Auto) 7.7, Lymph # (Auto) 1.8, Mellette # (Auto) 0.6, Eos # (Auto) 0.0, Baso # (Auto) 0.1, PT 10.9, INR 0.97, D-Dimer 0.77 H, Sodium 134 L, Potassium 3.5, Chloride 105, Carbon Dioxide 22, Anion Gap 10.5, BUN 18 H, Creatinine 0.80, Estimated Creat Clear 57, Estimated GFR 70, Est GFR ( Amer) 85, Glucose 125 H, Lactate 1.5, Calcium 10.2, Total Bilirubin 1.1, AST 26, ALT 21, Alkaline Phosphatase 86, Troponin I < 0.01, Total Protein 7.5, Albumin 4.6, Globulin 2.9, Albumin/Globulin Ratio 1.6, Lipase 89, HCV Ab MINERVA w/Rflx PCR Qn Negative, HIV Ag/Ab Combo Qual Negative 09/28/24 06:13: VBG pH 7.50 H, VBG pCO2 26.6 L, VBG pO2 33.5, VBG HCO3 20.3 L, VBG Total CO2 21.1 L, VBG O2 Saturation 74.7 H, VBG Base Excess -2.9 L, VBG Lactic Acid 2.0 09/28/24 08:48: Urine Color Yellow, Urine Appearance Clear, Urine pH 7.0, Ur Specific Andrews 1.015, Urine Protein Negative, Urine Glucose (UA) Negative, Urine Ketones 1+, Urine Blood Negative, Urine Nitrate Negative, Urine Bilirubin Negative, Urine Urobilinogen 0.2, Ur Leukocyte Esterase Negative, Urine RBC None, Urine WBC None, Ur Squamous Epith Cells Occasional, Urine Bacteria Trace 09/28/24 09:03: Troponin I < 0.01 09/28/24 06:09 09/28/24 06:09 Orders (Tests/Meds): ED MEDICATIONS Discontinued Medications Generic Name Dose Route Start Last Admin Trade Name Darrickq PRN Reason Stop Dose Admin Dexamethasone Sodium Phosphate 10 mg 09/28/24 07:05 09/28/24 07:26 Dexamethasone 4mg/Ml 1ml Vial IV 09/28/24 07:06 10 mg ONCE ONE Administration Lactated Ringer's 1,000 mls @ 999 mls/hr 09/28/24 06:00 09/28/24 06:16 Lactated Ringer's 1000 Ml Bag IV 09/28/24 07:00 999 mls/hr .Q1H1M ONE Administration Iopamidol 75 ml 09/28/24 06:58 09/28/24 06:59 Iopamidol-370 (76%);100ml Bottle IV 09/28/24 06:59 75 ml ONCE ONE Administration Ketorolac Tromethamine 30 mg 09/28/24 06:00 09/28/24 06:16 Ketorolac 30mg/Ml Vial IV 09/28/24 06:01 30 mg ONCE ONE Administration Morphine Sulfate 4 mg 09/28/24 06:00 09/28/24 06:16 Morphine 4mg/Ml Syringe IV 09/28/24 06:01 4 mg ONCE ONE Administration Ondansetron HCl 4 mg 09/28/24 06:00 09/28/24 06:16 Ondansetron 4mg/2ml Vial IV 09/28/24 06:01 4 mg ONCE ONE Administration Sodium Chloride 10 ml 09/28/24 06:58 09/28/24 06:59 Sodium Chloride 0.9% 10ml Syr (Rad Only) IV 09/28/24 06:59 10 ml ONCE ONE Administration ORDERS Category Date Time Status CT abdomen pelvis w con Stat Cat Scan 09/28/24 06:00 Completed XR chest portable Stat Exams 09/28/24 06:00 Completed Complete Blood Count Auto Diff Stat Lab 09/28/24 06:09 Completed Comprehensive Metabolic Panel Stat Lab 09/28/24 06:09 Completed D-Dimer Stat Lab 09/28/24 06:09 Completed HIV Combo Stat Lab 09/28/24 06:09 Completed Hepatitis C Ab Qual. W/ RFX Stat Lab 09/28/24 06:09 Completed Lactic Acid Stat Lab 09/28/24 06:09 Completed Lipase Stat Lab 09/28/24 06:09 Completed Prothrombin Time INR Stat Lab 09/28/24 06:09 Completed Troponin I Q3H Lab 09/28/24 09:03 Completed Troponin I Q3H Lab 09/28/24 12:15 Ordered Troponin I Stat Lab 09/28/24 06:09 Completed Urinalysis and Microscopic Stat Lab 09/28/24 08:48 Completed VBG [Venous Blood Gas] Stat RT 09/28/24 06:13 Completed HEART Score History (anamnesis): Slightly suspicious ECG: Non-specific disturbance Age: >65 years Risk factors: 1-2 risk factors Troponin: </= normal limit HEART Score: 4 Medical Decision Narrative: In summary, this 74-year-old female with comorbidities described in the HPI presents to the emergency department today with left flank pain radiating forward into the abdomen and under the left breast. On initial evaluation patient is hemodynamically stable, afebrile, patient has mild to moderate left CVA tenderness but otherwise physical exam is reassuring besides patient appearing to be in pain but nontoxic. Differential diagnosis includes but is not limited to UTI, pyelonephritis, kidney stone, hydronephrosis, kidney dysfunction, electrolyte abnormality, pancreatitis, atypical presentation of ACS, PE, among others. Based on these concerns, I ordered serum labs, CT imaging, urine studies, cardiac workup. ECG personally interpreted demonstrates normal sinus rhythm, rate 71, normal DC and QTc, no STEMI. Patient received morphine, Toradol, Zofran, IV fluids initially for treatment. Labs personally reviewed demonstrate CBC normal, VBG with pH 7.5, hypocarbia, consistent with patient's tachypnea secondary to pain. CMP overall unremarkable, troponin undetectably low less than 0.01, lipase 89 reassuring against pancreatitis. D-dimer 0.77, by years criteria PE excluded. Patient became hypoxic after receiving morphine, now on 2 L nasal cannula. She is resting more comfortably on reassessment. Patient handed off to Dr. Dunlap in stable condition pending radiology studies. <Anthony Dunlap MD - Last Filed: 09/28/24 10:07> Vital Signs: 09/28/24 06:08 09/28/24 06:09 09/28/24 06:30 Temperature 98.1 F Temperature Source Oral Pulse Rate 61 70 Pulse Rate [Radial] 68 Respiratory Rate 27 H 28 H 30 H Blood Pressure 183/99 H 175/86 H Blood Pressure [Right Arm] 183/99 H Blood Pressure Mean Blood Pressure Mean [Right Arm] 127 Blood Pressure Source Blood Pressure Position Blood Pressure Position [Right Arm] Sitting 02 Sat by Pulse Oximetry 99 99 91 L Oxygen Delivery Method Room Air 09/28/24 06:45 09/28/24 07:30 09/28/24 08:00 Temperature Temperature Source Pulse Rate 63 73 73 Pulse Rate [Radial] Respiratory Rate 16 13 11 L Blood Pressure 180/89 H 177/92 H Blood Pressure [Right Arm] Blood Pressure Mean 109 Blood Pressure Mean [Right Arm] Blood Pressure Source Blood Pressure Position Blood Pressure Position [Right Arm] 02 Sat by Pulse Oximetry 98 99 96 Oxygen Delivery Method Room Air 09/28/24 08:30 09/28/24 08:51 09/28/24 09:01 Temperature Temperature Source Pulse Rate 73 78 75 Pulse Rate [Radial] Respiratory Rate 13 17 16 Blood Pressure 186/94 H 193/92 H 182/81 H Blood Pressure [Right Arm] Blood Pressure Mean Blood Pressure Mean [Right Arm] Blood Pressure Source Blood Pressure Position Blood Pressure Position [Right Arm] 02 Sat by Pulse Oximetry 96 94 L 95 Oxygen Delivery Method Room Air Room Air Room Air 09/28/24 09:30 09/28/24 09:35 09/28/24 09:40 Temperature 98.4 F Temperature Source Oral Pulse Rate 74 72 66 Pulse Rate [Radial] Respiratory Rate 15 14 15 Blood Pressure 199/99 H 189/93 H 165/68 H Blood Pressure [Right Arm] Blood Pressure Mean Blood Pressure Mean [Right Arm] Blood Pressure Source Automatic Cuff Blood Pressure Position Supine Blood Pressure Position [Right Arm] 02 Sat by Pulse Oximetry 93 L 95 Oxygen Delivery Method Room Air Room Air Room Air Lab Data Lab Results 09/28/24 06:09: WBC 10.2, RBC 4.59, Hgb 13.1, Hct 39.5, MCV 86.1, MCH 28.5, MCHC 33.2, RDW 14.5, Plt Count 292, MPV 10.1, Neut % (Auto) 75.3, Lymph % (Auto) 17.7, Mellette % (Auto) 5.9, Eos % (Auto) 0.2, Baso % (Auto) 0.5, Neut # (Auto) 7.7, Lymph # (Auto) 1.8, Mellette # (Auto) 0.6, Eos # (Auto) 0.0, Baso # (Auto) 0.1, PT 10.9, INR 0.97, D-Dimer 0.77 H, Sodium 134 L, Potassium 3.5, Chloride 105, Carbon Dioxide 22, Anion Gap 10.5, BUN 18 H, Creatinine 0.80, Estimated Creat Clear 57, Estimated GFR 70, Est GFR ( Amer) 85, Glucose 125 H, Lactate 1.5, Calcium 10.2, Total Bilirubin 1.1, AST 26, ALT 21, Alkaline Phosphatase 86, Troponin I < 0.01, Total Protein 7.5, Albumin 4.6, Globulin 2.9, Albumin/Globulin Ratio 1.6, Lipase 89, HCV Ab MINERVA w/Rflx PCR Qn Negative, HIV Ag/Ab Combo Qual Negative 09/28/24 06:13: VBG pH 7.50 H, VBG pCO2 26.6 L, VBG pO2 33.5, VBG HCO3 20.3 L, VBG Total CO2 21.1 L, VBG O2 Saturation 74.7 H, VBG Base Excess -2.9 L, VBG Lactic Acid 2.0 09/28/24 08:48: Urine Color Yellow, Urine Appearance Clear, Urine pH 7.0, Ur Specific Andrews 1.015, Urine Protein Negative, Urine Glucose (UA) Negative, Urine Ketones 1+, Urine Blood Negative, Urine Nitrate Negative, Urine Bilirubin Negative, Urine Urobilinogen 0.2, Ur Leukocyte Esterase Negative, Urine RBC None, Urine WBC None, Ur Squamous Epith Cells Occasional, Urine Bacteria Trace 09/28/24 09:03: Troponin I < 0.01 Orders (Tests/Meds): ED MEDICATIONS Discontinued Medications Generic Name Dose Route Start Last Admin Trade Name Freq PRN Reason Stop Dose Admin Dexamethasone Sodium Phosphate 10 mg 09/28/24 07:05 09/28/24 07:26 Dexamethasone 4mg/Ml 1ml Vial IV 09/28/24 07:06 10 mg ONCE ONE Administration Lactated Ringer's 1,000 mls @ 999 mls/hr 09/28/24 06:00 09/28/24 06:16 Lactated Ringer's 1000 Ml Bag IV 09/28/24 07:00 999 mls/hr .Q1H1M ONE Administration Iopamidol 75 ml 09/28/24 06:58 09/28/24 06:59 Iopamidol-370 (76%);100ml Bottle IV 09/28/24 06:59 75 ml ONCE ONE Administration Ketorolac Tromethamine 30 mg 09/28/24 06:00 09/28/24 06:16 Ketorolac 30mg/Ml Vial IV 09/28/24 06:01 30 mg ONCE ONE Administration Morphine Sulfate 4 mg 09/28/24 06:00 09/28/24 06:16 Morphine 4mg/Ml Syringe IV 09/28/24 06:01 4 mg ONCE ONE Administration Ondansetron HCl 4 mg 09/28/24 06:00 09/28/24 06:16 Ondansetron 4mg/2ml Vial IV 09/28/24 06:01 4 mg ONCE ONE Administration Sodium Chloride 10 ml 09/28/24 06:58 09/28/24 06:59 Sodium Chloride 0.9% 10ml Syr (Rad Only) IV 09/28/24 06:59 10 ml ONCE ONE Administration ORDERS Category Date Time Status CT abdomen pelvis w con Stat Cat Scan 09/28/24 06:00 Completed XR chest portable Stat Exams 09/28/24 06:00 Completed Complete Blood Count Auto Diff Stat Lab 09/28/24 06:09 Completed Comprehensive Metabolic Panel Stat Lab 09/28/24 06:09 Completed D-Dimer Stat Lab 09/28/24 06:09 Completed HIV Combo Stat Lab 09/28/24 06:09 Completed Hepatitis C Ab Qual. W/ RFX Stat Lab 09/28/24 06:09 Completed Lactic Acid Stat Lab 09/28/24 06:09 Completed Lipase Stat Lab 09/28/24 06:09 Completed Prothrombin Time INR Stat Lab 09/28/24 06:09 Completed Troponin I Q3H Lab 09/28/24 09:03 Completed Troponin I Q3H Lab 09/28/24 12:15 Ordered Troponin I Stat Lab 09/28/24 06:09 Completed Urinalysis and Microscopic Stat Lab 09/28/24 08:48 Completed VBG [Venous Blood Gas] Stat RT 09/28/24 06:13 Completed HEART Score HEART Score: 4 Medical Decision Narrative: In summary, this 74-year-old female with comorbidities described in the HPI presents to the emergency department today with left flank pain radiating forward into the abdomen and under the left breast. On initial evaluation patient is hemodynamically stable, afebrile, patient has mild to moderate left CVA tenderness but otherwise physical exam is reassuring besides patient appearing to be in pain but nontoxic. Differential diagnosis includes but is not limited to UTI, pyelonephritis, kidney stone, hydronephrosis, kidney dysfunction, electrolyte abnormality, pancreatitis, atypical presentation of ACS, PE, among others. Based on these concerns, I ordered serum labs, CT imaging, urine studies, cardiac workup. ECG personally interpreted demonstrates normal sinus rhythm, rate 71, normal DC and QTc, no STEMI. Patient received morphine, Toradol, Zofran, IV fluids initially for treatment. Labs personally reviewed demonstrate CBC normal, VBG with pH 7.5, hypocarbia, consistent with patient's tachypnea secondary to pain. CMP overall unremarkable, troponin undetectably low less than 0.01, lipase 89 reassuring against pancreatitis. D-dimer 0.77, by years criteria PE excluded. Patient became hypoxic after receiving morphine, now on 2 L nasal cannula. She is resting more comfortably on reassessment. Patient handed off to Dr. Dunlap in stable condition pending radiology studies. Germán: I assumed primary responsibility for this patient after signout from previous physician. On my evaluation, patient in no acute distress. On exam, I feel this is most consistent with radiculopathy versus intercostal muscle strain. Decadron was given. Independent interpretation of workup with nonactionable CBC or chemistry. Troponin negative, lipase negative. VBG with mild metabolic acidosis with respiratory alkalosis pH 7.5/CO2 low at 26/bicarb low at 20 with normal lactate. On independent interpretation of patient's CT, no evidence of acute intra-abdominal abnormality or acute spinal abnormality. Urinalysis demonstrated no evidence of UTI. Because patient at baseline without signs or symptoms of clinical decompensation, deemed appropriate for discharge. Results were relayed to patient who voiced understanding and were agreeable to outpatient management and follow up. I discussed my clinical impression with patient and answered all questions. At this time, the evidence for any other entities in the differential is insufficient to warrant any further testing or ED observation. This was explained as well. Advisory was given that persistent or worsening symptoms require further evaluation. I confirmed the understanding of this discussion. Critical Care <Angie Edmondson MD - Last Filed: 09/28/24 06:59> Critical Care Time Critical Care Time: No
--- NOTE | 2024-09-28 06:07 | ECG_ITS ---
APPROVED REPORT Exam: Resting ECG HR:71 bpm ECG Measurements Heart Rate 71 AXES NC 206 P 62 QRSd 83 QRS 12 QT 416 T 5 QTc 438 Conclusion SINUS RHYTHM LEFT VENTRICULAR HYPERTROPHY AND ST-T CHANGE [VOLTAGE CRITERIA PLUS ST/T ABNORMALITY] No STEMI Electronically signed by : VERNELL MONTALVO, 09/29/2024 02:44:48
[2024-09-28] MEDS: KETOROLAC 30MG/ML VIAL 30 MG IV (06:16)
[2024-09-28] MEDS: LACTATED RINGERS 1000ML 1,000 ML 999 ML IV (06:16)
[2024-09-28] MEDS: ONDANSETRON 4MG/2ML VIAL 4 MG IV (06:16)
[2024-09-28] MEDS: MORPHINE 4MG/ML SYRINGE 4 MG IV (06:16)
[2024-09-28 06:17] LABS: Basophils # 0.1 K/mm3 (0-0.2); Basophils % 0.5 % (0.1-2.0); Eosinophils % 0.2 % (0.1-12.0); Hematocrit 39.5 % (37.0-47.0); Hemoglobin 13.1 g/dL (12.2-16.2); Lymphocytes # 1.8 K/mm3 (0.7-4.5); Lymphocytes % 17.7 % (10-50); Mean Corpuscular HGB Conc 33.2 g/dL (31.8-35.4); Mean Corpuscular Hemoglobin 28.5 pg (27.0-31.2); Mean Corpuscular Volume 86.1 fl (81-99); Mean Platelet Volume 10.1 fl (7.4-10.4); Monocytes # 0.6 K/mm3 (0.1-1.0); Monocytes % 5.9 % (1.7-9.3); Neutrophils # 7.7 K/mm3 (1.8-7.8); Neutrophils % 75.3 % (37.0-80.0); Nucleated Red Blood Cells # 0 10^3/uL; Nucleated Red Blood Cells % 0 %; Platelet Count 292 K/mm3 (142-424); Red Blood Count 4.59 M/mm3 (4.20-5.40); Red Cell Distribution Width 14.5 % (11.5-17.5); Red Cell Distribution Width-SD 45.7 fL; White Blood Count 10.2 K/mm3 (4.8-10.8)
[2024-09-28 06:18] LABS: VBG Base Excess -2.9 mmol/L (-2.4-2.3); VBG HCO3 20.3 mmol/L (23-30); VBG Oxygen Saturation 74.7 % (50-70); VBG PCO2 26.6 mmol/L (35-51); VBG PO2 33.5 mmol/L (28-40); VBG Total CO2 21.1 mmol/L (23-27)
[2024-09-28 06:31] LABS: Alanine Aminotransferase 21 U/L (12-78); Albumin Level 4.6 g/dl (3.5-5.0); Albumin/Globulin Ratio 1.6 (1.1-1.8); Alkaline Phosphatase 86 U/L (38-126); Anion Gap 10.5 mEq/L (5-15); Aspartate Amino Transferase 26 U/L (14-36); Bilirubin,Total 1.1 mg/dl (0.2-1.3); Blood Urea Nitrogen 18 mg/dl (7-17); Calcium 10.2 mg/dl (8.4-10.2); Carbon Dioxide 22 mmol/L (22.0-30.0); Chloride 105 mmol/L (98-107); Creatinine Clearance Estimated 57 mL/min (50-200); Estimated Glomerular Filt Rate 70 ml/min (>60); GFR (African American) 85 ML/MIN (>60); Globulin 2.9 g/dL (1.3-3.2); Glucose 125 mg/dl (74-100); INR 0.97 (0.9-1.1); Lactic Acid 1.5 mmol/L (0.7-2.1); Lipase 89 U/L (23-300); Potassium 3.5 mmoL/L (3.5-5.1); Prothrombin Time 10.9 seconds (10.1-12.5); Sodium 134 mmol/L (136-145); Total Protein,Serum 7.5 g/dl (6.3-8.2)
--- NOTE | 2024-09-28 06:36 | PC.NURSE ---
pt de-sat to 82% after receiving pain medication. MD Edmondson aware and pt placed on 2L NC
[2024-09-28 06:43] LABS: Troponin I < 0.01 ng/ml (0.00-0.034)
[2024-09-28 06:47] LABS: D-Dimer 0.77 ug/mL (0.0-0.5)
--- NOTE | 2024-09-28 06:49 | PC.NURSE ---
pt to CT at this time
[2024-09-28] MEDS: SODIUM CHLORIDE 0.9% 10ML SYR (RAD ONLY) 10 ML IV (06:59)
[2024-09-28] MEDS: IOPAMIDOL-370 (76%);100ML BOTTLE 75 ML IV (06:59)
[2024-09-28] MEDS: DEXAMETHASONE 4MG/ML 1ML VIAL 10 MG IV (07:26)
[2024-09-28 08:03] LABS: HIV Combo NEGATIVE (Negative)
[2024-09-28 08:52] LABS: Microscopic, Urine URINE MICROSCOPIC (MICROSCOPIC)
[2024-09-28 08:53] LABS: Appearance,Urine CLEAR (Clear); Bilirubin,Urine Negative (Negative); Blood, Urine Negative (Negative); Color,Urine YELLOW (Yellow); Glucose,Urine (UA) Negative (Negative); Ketones,Urine 1+ (Negative); Leukocyte Esterase,Urine Negative (Negative); Nitrate,Urine Negative (Negative); Protein,Urine Negative (Negative); Specific Gravity, Urine 1.015 (1.005-1.030); Urobilinogen,Urine 0.2 EU/dl (0.2)
[2024-09-28 09:03] LABS: Hepatitis C Ab Qual. W/ RFX NEGATIVE (Negative)
[2024-09-28 09:11] LABS: Bacteria,Urine Trace /lpf; Squamous Epithelial Cell,Urine Occasional #/hpf (0-5)
[2024-09-28 09:29] LABS: Troponin I < 0.01 ng/ml (0.00-0.034)
== END 2024-09-28 09:59 | disposition home or self-care (01) ==
PROVIDERS: Emergency Medicine; Emergency Provider Emergency Medicine; PCP Nurse Practitioner Family
DX: M54.14 Radiculopathy, thoracic region (principal); M54.6 Pain in thoracic spine; Z11.59 Encounter for screening for other viral diseases; Z11.4 Encounter for screening for human immunodeficiency virus [HIV]
CPT/HCPCS: 71045; 74177; 80053; 81001; 82803; 83605; 83690; 84484; 85025; 85378; 85610; 86803; 87389; 93005; 96361; 96374; 96375; 99285; J1100; J1885; J2270; J2405; J7120; Q9967

== ENCOUNTER 2024-10-02 09:46 | Outpatient (CLI) | payer MEDICARE, SELFPAY ==
[2024-10-02 10:48] LABS: Basophils % 0.2 % (0.1-2.0); Eosinophils % 0.1 % (0.1-12.0); Hematocrit 42.1 % (37.0-47.0); Hemoglobin 13.6 g/dL (12.2-16.2); Lymphocytes # 4.4 K/mm3 (0.7-4.5); Lymphocytes % 32.5 % (10-50); Mean Corpuscular HGB Conc 32.3 g/dL (31.8-35.4); Mean Corpuscular Hemoglobin 28.6 pg (27.0-31.2); Mean Corpuscular Volume 88.4 fl (81-99); Mean Platelet Volume 10.3 fl (7.4-10.4); Monocytes # 1.2 K/mm3 (0.1-1.0); Monocytes % 9.2 % (1.7-9.3); Neutrophils # 7.7 K/mm3 (1.8-7.8); Neutrophils % 57.6 % (37.0-80.0); Nucleated Red Blood Cells # 0 10^3/uL; Nucleated Red Blood Cells % 0 %; Platelet Count 334 K/mm3 (142-424); Red Blood Count 4.76 M/mm3 (4.20-5.40); Red Cell Distribution Width 14.5 % (11.5-17.5); Red Cell Distribution Width-SD 46.6 fL; White Blood Count 13.4 K/mm3 (4.8-10.8)
[2024-10-02 11:08] LABS: Albumin Level 4.2 g/dl (3.5-5.0); Chloride 105 mmol/L (98-107)
[2024-10-02 11:09] LABS: Potassium 3.6 mmoL/L (3.5-5.1); Sodium 136 mmol/L (136-145)
[2024-10-02 11:11] LABS: Alanine Aminotransferase 30 U/L (12-78); Albumin/Globulin Ratio 1.7 (1.1-1.8); Anion Gap 10.6 mEq/L (5-15); Aspartate Amino Transferase 32 U/L (14-36); Blood Urea Nitrogen 27 mg/dl (7-17); Carbon Dioxide 24 mmol/L (22.0-30.0); Estimated Glomerular Filt Rate 54 ml/min (>60); GFR (African American) 66 ML/MIN (>60); Globulin 2.5 g/dL (1.3-3.2); Total Protein,Serum 6.7 g/dl (6.3-8.2)
[2024-10-02 11:12] LABS: Alkaline Phosphatase 67 U/L (38-126); Bilirubin,Total 0.6 mg/dl (0.2-1.3); Calcium 9.9 mg/dl (8.4-10.2); Glucose 61 mg/dl (74-100)
[2024-10-02 11:17] LABS: C-Reactive Protein 1.2 mg/L (0-4)
[2024-10-02 11:21] LABS: Hemoglobin A1C 5.3 % (4.0-6.0)
[2024-10-02 11:42] LABS: 25-OH Vitamin D, Total 32.8 ng/mL (30-100); Thyroid Stimulating Hormone 3.74 uIU/mL (0.465-4.68)
[2024-10-02 11:46] LABS: Ferritin 99.2 ng/ml (11.1-264)
[2024-10-02 12:14] LABS: Vitamin B12 607 pg/mL (239-931)
[2024-10-03 12:21] LABS: Triiodothyronine (T3) Free 1.8 pg/mL (2.0-4.4)
== END 2024-10-02 23:59 | disposition home or self-care (01) ==
LOC: LAB 09:47
PROVIDERS: PCP Nurse Practitioner Family; Visit Provider Nurse Practitioner Family
DX: M81.0 Age-related osteoporosis without current pathological fracture (principal); R41.3 Other amnesia
CPT/HCPCS: 36415; 80053; 82306; 82607; 82728; 83036; 83735; 84443; 84481; 85025; 86140

== ENCOUNTER 2024-10-04 16:46 | Outpatient (CLI) | payer MEDICARE, SELFPAY ==
--- NOTE | 2024-10-04 16:50 | XR_ITS ---
FINAL REPORT TECHNIQUE: Supine and upright abdomen series CLINICAL HISTORY: constipation COMPARISON: None FINDINGS: ABDOMEN 3 VIEWS: Views of the abdomen were obtained with no prior films available for comparison purposes. The bowel gas pattern is nonobstructive and nonspecific. There is a large amount of stool present in the proximal colon. No evidence of renal stones is seen. There are small phleboliths present in the left side of the pelvis. Levoscoliosis is present. IMPRESSION: Large amount of stool in the proximal colon, with a nonspecific and nonobstructive bowel gas pattern. Reviewed, Interpreted and Dictated by Peggy Bridges MD Transcribed by Candis Ramirez Authenticated and [facility]
== END 2024-10-04 23:59 | disposition home or self-care (01) ==
LOC: RAD 16:47
PROVIDERS: PCP Nurse Practitioner Family; Visit Provider Nurse Practitioner Family
DX: K59.00 Constipation, unspecified (principal)
CPT/HCPCS: 74019

== ENCOUNTER 2024-10-20 15:55 | Outpatient (CLI) | payer MEDICARE, SELFPAY ==
--- NOTE | 2024-10-20 16:30 | MR_ITS ---
PROCEDURE INFORMATION: Exam: MR Head Without Contrast Exam date and time: 10/20/2024 4:28 PM Age: 74 years old Clinical indication: Other: Unsteadiness; Additional info: Unsteadiness, memory changes TECHNIQUE: Imaging protocol: Magnetic resonance imaging of the head without contrast. COMPARISON: CT - HEADWO CT head/brain wo con 12/21/2018 10:21 PM FINDINGS: Brain: Moderate periventricular gliotic foci are identified bilateral and symmetric indicative of chronic small vessel disease. Cerebral ventricles: Normal. No ventriculomegaly. Bones: Unremarkable. Paranasal sinuses: Normal as visualized. No acute sinusitis. Mastoid air cells: Normal as visualized. No mastoid effusion. Orbital cavities: Unremarkable. Soft tissues: Unremarkable. IMPRESSION: 1. No acute findings. 2. Senescent changes within the brain as discussed.
== END 2024-10-20 23:59 | disposition home or self-care (01) ==
PROVIDERS: PCP Nurse Practitioner Family; Visit Provider Nurse Practitioner Family
DX: R90.89 Other abnormal findings on diagnostic imaging of central nervous system (principal); R41.3 Other amnesia; R26.81 Unsteadiness on feet
CPT/HCPCS: 70551

== ENCOUNTER 2024-11-22 11:05 | Outpatient (RCR) | payer MEDICARE, SELFPAY | END 2024-11-22 23:59 | disposition home or self-care (01) | LOC: PT 11:05 | PROVIDERS: Visit Provider Nurse Practitioner Family | DX: M23.51 Chronic instability of knee, right knee (principal); M25.561 Pain in right knee | CPT/HCPCS: 97760 ==

== ENCOUNTER 2024-11-23 10:29 | Outpatient (CLI) | payer MEDICARE, SELFPAY ==
--- NOTE | 2024-11-23 10:33 | XR_ITS ---
FINAL REPORT CLINICAL HISTORY: right anterior and posterior knee pain and instabi COMPARISON: 11/07/2021 FINDINGS: Four views of the right knee show no evidence of an acute, displaced fracture or dislocation of the visualized bony architecture. Osteopenia is noted. There is moderate tricompartmental degenerative change. No joint effusion is noted. IMPRESSION: Degenerative change without acute process. Reviewed, Interpreted and Dictated by Yvette Fu MD Transcribed by Magdalene Browne Authenticated and [facility]
== END 2024-11-23 23:59 | disposition home or self-care (01) ==
LOC: RAD 10:30
PROVIDERS: PCP Nurse Practitioner Family; Visit Provider Nurse Practitioner Family
DX: M85.861 Other specified disorders of bone density and structure, right lower leg; M17.11 Unilateral primary osteoarthritis, right knee; M25.461 Effusion, right knee
CPT/HCPCS: 73564

== ENCOUNTER 2025-05-08 15:57 | Observation (INO) | payer MEDICARE, SELFPAY ==
[2025-05-08 16:01] VITALS: BP 130/53; PULSE 56; RESP 20; TEMP 36.8; O2SAT 93; BMI 22.6
--- NOTE | 2025-05-08 19:09 | CT_ITS ---
PROCEDURE INFORMATION: Exam: CTA Neck With Contrast Exam date and time: 05/08/2025 8:33 PM Age: 74 years old Clinical indication: Stroke-like symptoms; Altered mental status/memory loss; Additional info: Possible stroke TECHNIQUE: Imaging protocol: Computed tomographic angiography of the neck with contrast. Exam focused on the cervical segments of the vasculature. 3D rendering (Not supervised by radiologist): MIP and/or 3D reconstructed images were created by the technologist. Radiation optimization: All CT scans at this facility use at least one of these dose optimization techniques: automated exposure control; mA and/or kV adjustment per patient size (includes targeted exams where dose is matched to clinical indication); or iterative reconstruction. Contrast material: ISOVUE; Contrast volume: 80 ml; Contrast route: INTRAVENOUS (IV); COMPARISON: CT - SPCERVWO CT cervical spine wo con 12/21/2018 10:25 PM FINDINGS: Right common carotid artery: No stenosis. No dissection or occlusion. Right internal carotid artery: No stenosis of the extracranial segment. No dissection or occlusion. Right external carotid artery: No occlusion or stenosis of the origin. Left common carotid artery: No stenosis. No dissection or occlusion. Left internal carotid artery: No stenosis of the extracranial segment. No dissection or occlusion. Left external carotid artery: No occlusion or stenosis of the origin. Right vertebral artery: No stenosis. No dissection or occlusion. Left vertebral artery: No stenosis. No dissection or occlusion. Soft tissues: Normal. No significant soft tissue swelling. Bones/joints: No acute fracture. IMPRESSION: No stenosis or occlusion. REFERENCES: NASCET CRITERIA. The degree of stenosis in the cervical segment of the internal carotid artery is based on NASCET criteria. Normal is no stenosis. Mild is less than 50% stenosis. Moderate is 50-69% stenosis. Severe is 70% to 99% stenosis. Total occlusion is no detectable patent lumen.
--- NOTE | 2025-05-08 19:09 | ECG_ITS ---
APPROVED REPORT Exam: Resting ECG HR:49 bpm ECG Measurements Heart Rate 49 AXES WY 184 P 52 QRSd 95 QRS 28 QT 487 T 1 QTc 459 Conclusion SINUS BRADYCARDIA NONSPECIFIC ST & T-WAVE ABNORMALITY No STEMI Electronically signed by : VERNELL MONTALVO, 05/11/2025 06:50:35
--- NOTE | 2025-05-08 19:09 | CT_ITS ---
PROCEDURE INFORMATION: Exam: CT Head Without Contrast Exam date and time: 05/08/2025 8:32 PM Age: 74 years old Clinical indication: Stroke-like symptoms; Altered mental status/memory loss; Additional info: Possible stroke TECHNIQUE: Imaging protocol: Computed tomography of the head without contrast. Radiation optimization: All CT scans at this facility use at least one of these dose optimization techniques: automated exposure control; mA and/or kV adjustment per patient size (includes targeted exams where dose is matched to clinical indication); or iterative reconstruction. Other technique: STROKE PROTOCOL was implemented. COMPARISON: MR HEAD/BRAIN WO CON 10/20/2024 4:28 PM FINDINGS: Brain: Atrophy and chronic small vessel ischemic changes. No hemorrhage. No mass effect or midline shift. Cerebral ventricles: No ventriculomegaly. Paranasal sinuses: Visualized sinuses are unremarkable. No fluid levels. Mastoid air cells: Visualized mastoid air cells are well aerated. Bones: Unremarkable. No acute fracture. Soft tissues: Unremarkable. IMPRESSION: Chronic changes in the brain but no acute intracranial abnormality. ASSESSMENT: ASPECTS ([facility] Stroke Program Early CT Score) is 10 KRISTA ARVIZU was contacted by phone at 8:50 PM EST, 05/08/2025 with these results.
--- NOTE | 2025-05-08 19:09 | CT_ITS ---
PROCEDURE INFORMATION: Exam: CTA Head With Contrast, Arteriography Exam date and time: 05/08/2025 8:33 PM Age: 74 years old Clinical indication: Stroke-like symptoms; Altered mental status/memory loss; Additional info: Possible stroke TECHNIQUE: Imaging protocol: Computed tomographic angiography of the head with contrast. Exam focused on the arteries. 3D rendering (Not supervised by radiologist): MIP and/or 3D reconstructed images were created by the technologist. Radiation optimization: All CT scans at this facility use at least one of these dose optimization techniques: automated exposure control; mA and/or kV adjustment per patient size (includes targeted exams where dose is matched to clinical indication); or iterative reconstruction. Contrast material: ISOVUE; Contrast volume: 80 ml; Contrast route: INTRAVENOUS (IV); COMPARISON: MR HEAD/BRAIN WO CON 10/20/2024 4:28 PM FINDINGS: ANTERIOR CIRCULATION: Right internal carotid artery: Intracranial segment is patent with no significant stenosis. No aneurysm. Right middle cerebral artery: No occlusion or significant stenosis. No aneurysm. Right anterior cerebral artery: No occlusion or significant stenosis. No aneurysm. Left internal carotid artery: Intracranial segment is patent with no significant stenosis. No aneurysm. Left middle cerebral artery: No occlusion or significant stenosis. No aneurysm. Left anterior cerebral artery: No occlusion or significant stenosis. No aneurysm. POSTERIOR CIRCULATION: Right vertebral artery: No occlusion or significant stenosis. No aneurysm. Left vertebral artery: No occlusion or significant stenosis. No aneurysm. Basilar artery: No occlusion or significant stenosis. No aneurysm. Right posterior cerebral artery: No occlusion or significant stenosis. No aneurysm. Left posterior cerebral artery: No occlusion or significant stenosis. No aneurysm. Brain: No definite mass, mass effect, or midline shift. Cerebral ventricles: No ventriculomegaly. Bones/joints: Unremarkable. No acute fracture. Soft tissues: Unremarkable. IMPRESSION: No large vessel stenosis or occlusion.
--- NOTE | 2025-05-08 19:10 | XR_ITS ---
PROCEDURE INFORMATION: Exam: XR Chest Exam date and time: 05/08/2025 8:25 PM Age: 74 years old Clinical indication: Shortness of breath; Additional info: SOA TECHNIQUE: Imaging protocol: Radiologic exam of the chest. Views: 1 view. COMPARISON: CR XR CHEST PORTABLE 09/28/2024 7:01 AM FINDINGS: Lungs: Unremarkable. No consolidation. Pleural spaces: Unremarkable. No pleural effusion. No pneumothorax. Heart/Mediastinum: Unremarkable. No cardiomegaly. Bones/joints: Unremarkable. IMPRESSION: No acute findings.
--- NOTE | 2025-05-08 19:11 | ED_ITS ---
<Statement entered by Sandra Rousseau DO - 05/09/25 00:18> I was consulted by the JEFF, and we discussed the complexity of problems being addressed. I approve the treatment and management plan for this patient's care in the emergency department, thus performing a substantial portion of the medical decision making. Sandra Rousseau DO Discharge Plan Disposition Chief Complaint: Anxiety Prescriptions Prescriptions: No Action memantine [Namenda] 10 mg tablet 10 mg PO BID Qty: 60 2RF Linzess 72 mcg capsule 72 mcg PO DAILY Qty: 30 2RF lisinopril 30 mg tablet See Rx Instructions .ROUTE .COMPLEX Qty: 90 3RF Dose Instruction: Take 1 tablet by mouth once daily for blood pressure Rx Instructions: Take 1 tablet by mouth once daily for blood pressure bisoprolol fumarate 5 mg tablet See Rx Instructions .ROUTE .COMPLEX Qty: 90 0RF Dose Instruction: Take 1 tablet by mouth once daily for blood pressure Rx Instructions: Take 1 tablet by mouth once daily for blood pressure amlodipine 2.5 mg tablet See Rx Instructions .ROUTE .COMPLEX Qty: 90 0RF Dose Instruction: Take 1 tablet by mouth once daily for blood pressure Rx Instructions: Take 1 tablet by mouth once daily for blood pressure fluoxetine 20 mg capsule 20 mg PO DAILY Qty: 90 1RF cyclobenzaprine 10 mg tablet 10 mg PO HS PRN (Reason: back pain) 30 Days Qty: 30 2RF omeprazole 20 mg capsule,delayed release(DR/EC) See Rx Instructions .ROUTE .COMPLEX Qty: 90 0RF Dose Instruction: TAKE 1 CAPSULE BY MOUTH ONCE DAILY FOR GERD Rx Instructions: TAKE 1 CAPSULE BY MOUTH ONCE DAILY FOR GERD aspirin 81 MG tablet,delayed release (DR/EC) 81 mg PO DAILY Referrals Follow up/Referrals: Ro Rider APRN [Primary Care Provider, Medical] - See instructions Print Language Print Language: Latvian Discharge ED Provider: Sandra Rousseau General Adult HPI General Chief complaint: Anxiety Stated complaint: weakness,jaw pain,anxiety,SOA Time Seen by Provider: 05/08/25 18:53 Mode of Arrival: Ambulatory Source of Information: Patient and Spouse Description of Symptoms (Recalled from ER Triage Doc. by RN): patient presents to the ED for anxiety symptoms and shortness of breath. patients is with her. she has seen dr mendoza and a psychiatrist for this new anxiety but is not medicated for it. patient in no apparent distress at this moment. History of Present Illness HPI narrative: patient is a 74-year-old female PMHx depression, anxiety, encephalopathic, renal insufficiency and dementia who presents to the ED for complaints of 1 episode of shortness of breath, jaw pain, slurred speech and difficulty walking that occurred 4 hours ago. Spouse is at bedside who advises that he had to assist patient in the restroom and with walking when this occurred. Patient has not had the symptoms previously. Denies any recent illness, falls or trauma. Related Data Home Medications ?Medication ?Instructions ?Recorded ?Confirmed aspirin 81 mg tablet,delayed 81 mg PO DAILY Heart dise ase 01/01/18 02/13/25 release Previous Rx's ?Medication ?Instructions ?Recorded linaclotide 72 mcg capsule 72 mcg PO DAILY #30 caps (Linzess) lisinopril 30 mg tablet See Rx Instructions .Route 0 12/29/24 .COMPLEX #90 tabs memantine 10 mg tablet (Namenda) 10 mg PO BID #60 tabs 02/13/25 amlodipine 2.5 mg tablet See Rx Instructions .Route 1 .COMPLEX #90 tabs bisoprolol fumarate 5 mg tablet See Rx Instructions .R oute 03/20/25 .COMPLEX #90 tabs cyclobenzaprine 10 mg tablet 10 mg PO HS PRN back pain 30 days 03/23/25 #30 tabs fluoxetine 20 mg capsule 20 mg PO DAILY #90 caps 03/01 09/22 omeprazole 20 mg capsule,delayed See Rx Instructions . Route 03/23/25 release .COMPLEX #90 caps Allergies Allergy/AdvReac Type Severity Reaction Status Date / Time Penicillins Allergy Intermediate I-HIVES Verified 02/13/25 13:28 [facility] Disclaimer: The information contained in this section may have been updated after the patient was seen, as this information can be updated by other users. Medical History (Updated 04/13/25 @ 11:18 by Ashley Sanz) Anxiety Osteoporosis Depression Hypertension Surgical History H/O section History of cholecystectomy Family History (Updated 02/13/25 @ 13:28 by Brisa Crooks CMA) Father Stroke Diabetes Mother Hypertension Alzheimer disease Other Asthma Heart attack Social History (Reviewed 02/13/25 @ 13:28 by LILA Espinoza Smoking Status: Never smoker alcohol intake: never substance use type: denies use current occupational status: retired Travel in the last 8 weeks?: None household members: spouse housing: house Have you lived/traveled outside [place] in past 30 days?: No Contact w/someone who lives/traveled outside US past 30 days?: No Exposure to someone with infectious disease in past 14 days?: No Do you have a fever (greater than 100.4 F or 38 C)?: No Have you tested positive for COVID-19?: No Exposed to someone with COVID-19 in past 14 days?: No Do you have a sore throat?: No Do you have a cough?: No Do you have any weakness?: No Do you have any diarrhea?: No Are you experiencing any unusual bleeding?: No Do you have any muscle aches/pain?: No Do you have any abdominal pain?: No Are you experiencing loss of taste or smell?: No Other Medical History Have you received the Flu Vaccine for this season: Yes Have you received the Pneumonia Vaccine: No ROS Obtained: Yes Systems reviewed as appropriate & no additional complaints except as documented Physical Exam General General appearance: alert Head Head exam: atraumatic Eye Eye exam: Present PERRL Neck Neck exam: Present full ROM Respiratory Respiratory exam: Present normal lung sounds bilaterally Cardiovascular Cardiovascular exam: Present regular rate Abdominal Exam Abdominal exam: Present soft; Absent tenderness Back Exam Back exam: Present normal inspection and full ROM Neurological Exam Neurological exam: Present alert and oriented X3 Skin Skin exam: Present warm and dry Medical Decision Making Medical Records Screening: Per USPSTF and CDC recommendations, given the prevalence of disease in our region, it is our hospital?s policy to screen for HIV and viral Hepatitis for all patients aged 18 and over and those with ongoing risk factors. Pablo Inquiry Pt receiving controlled substance: No Vital Signs: 05/08/25 16:01 Temperature 98.2 F Temperature Source Oral Pulse Rate [Right Radial] 56 L Respiratory Rate 20 Blood Pressure [Right Arm] 130/53 L Blood Pressure Mean [Right Arm] 78 Blood Pressure Source [Right Arm] Automatic Cuff Blood Pressure Position [Right Arm] Sitting 02 Sat by Pulse Oximetry 93 L Oxygen Delivery Method Room Air Lab Data Lab Results 05/08/25 20:10: WBC 13.6 H, RBC 4.46, Hgb 12.5, Hct 39.0, MCV 87.4, MCH 28.0, MCHC 32.1, RDW 14.6, Plt Count 286, MPV 10.7 H, Neut % (Auto) 71.6, Lymph % (Auto) 22.0, [place] % (Auto) 5.2, Eos % (Auto) 0.5, Baso % (Auto) 0.5, Neut # (Auto) 9.7 H, Lymph # (Auto) 3.0, [place] # (Auto) 0.7, Eos # (Auto) 0.1, Baso # (Auto) 0.1, PT 11.6, INR 1.05, APTT 24.4, D-Dimer 1.38 H, Sodium 137, Potassium 3.6, Chloride 101, Carbon Dioxide 24, Anion Gap 15.6 H, BUN 24 H, Creatinine 1.20 H, Estimated Creat Clear 42, Estimated GFR 44 L, Est GFR ( Amer) 53 L, Glucose 121 H, Calcium 10.0, Total Bilirubin 0.7, AST 31, ALT 25, Alkaline Phosphatase 91, Troponin I < 0.01, Total Protein 7.0, Albumin 4.2, Globulin 2.8, Albumin/Globulin Ratio 1.5, Triglycerides 116, Cholesterol 222 H, LDL Cholesterol Direct 144.76 H, VLDL Cholesterol 23, HDL Cholesterol 72 H, Cholesterol/HDL Ratio 3.1, Plasma/Serum Alcohol < 10 05/08/25 20:10 05/08/25 20:10 Orders (Tests/Meds): ED MEDICATIONS Generic Name Dose Route Start Last Admin Trade Name Freq PRN Reason Stop Dose Admin Sodium Chloride 10 ml 05/08/25 19:08 Sodium Chloride 0.9% 10ml Flush Syringe IV 06/07/25 19:07 NEEDED PRN Maintain IV Site Discontinued Medications Generic Name Dose Route Start Last Admin Trade Name Freq PRN Reason Stop Dose Admin Iopamidol 80 ml 05/08/25 20:34 05/08/25 20:35 Iopamidol-370 (76%);100ml Bottle IV 05/08/25 20:35 80 ml ONCE ONE Administration Sodium Chloride 50 ml 05/08/25 20:34 05/08/25 20:36 0.9 % Sodium Chloride 50 Ml Vial IV 05/08/25 20:35 50 ml ONCE ONE Administration Sodium Chloride 10 ml 05/08/25 20:34 05/08/25 20:36 Sodium Chloride 0.9% 10ml Syr (Rad Only) IV 05/08/25 20:35 10 ml ONCE ONE Administration ORDERS Category Date Time Status CT angio chest PE protocol Stat Cat Scan 05/08/25 20:[address] angio head Stat Cat Scan 05/08/25 19:[address] angio neck Stat Cat Scan 05/08/25 19:[address] head/brain wo con Stat Cat Scan 05/08/25 19:09 Completed CXR --portable [XR chest portable] Stat Exams 05/08/25 19:10 Completed Activated Partial Thrombo Time Stat Lab 05/08/25 20:10 Completed CBC [Complete Blood Count Auto Diff] Stat Lab 05/08/25 20:10 Completed CMP [Comprehensive Metabolic Panel] Stat Lab 05/08/25 20:10 Completed D-Dimer Stat Lab 05/08/25 20:10 Completed Drug Screen,Urine Stat Lab 05/08/25 20:59 Received Ethyl Alcohol Stat Lab 05/08/25 20:10 Completed Lipid Panel Stat Lab 05/08/25 20:10 Completed Prothrombin Time INR Stat Lab 05/08/25 20:10 Completed Troponin I Q3H Lab 05/08/25 22:15 Ordered Troponin I Q3H Lab 05/09/25 01:15 Ordered Troponin I Stat Lab 05/08/25 20:10 Completed Urinalysis and Microscopic Stat Lab 05/08/25 20:59 Received Medical Decision Narrative: In summary, patient is a 74-year-old female PMHx depression, anxiety, encephalopathic, renal insufficiency and dementia who presents to the ED for complaints of 1 episode of shortness of breath, jaw pain, slurred speech and difficulty walking that occurred 4 hours ago. Spouse is at bedside who advises that he had to assist patient in the restroom and with walking when this occurred. Patient has not had the symptoms previously. Denies any recent illness, falls or trauma. Denies fever, chills, body aches, headache, visual disturbances, current chest pain, abdominal pain, nausea, vomiting. Differential diagnosis include CVA, mass, bleed, other stroke, infectious process, ACS, pulmonary embolism, anxiety, worsening dementia, among others. Upon initial evaluation patient is alert, oriented and cooperative. She is speaking in slow sentences however apparently this is her baseline. Physical exam normal. At the time patient was placed in a room, she had been waiting for 3 hours in the waiting room, so my initial evaluation was 4 hours total after onset of symptoms. At the time of my evaluation, patient states that all symptoms have resolved. I discussed with patient and family that we will proceed with labs and CT scan. CBC unremarkable for any leukocytosis, stable H&H. CMP remarkable for BUN 24, creatinine 1.20. Troponin < 0.01. D-dimer 1.38, CT scan PE protocol of the chest ordered. Head CT unremarkable for any acute changes. Patient will need continued TIA workup, admitted to hospital medicine for further evaluation pending PET scan to be performed. Critical Care Critical Care Time Critical Care Time: No
--- NOTE | 2025-05-08 20:18 | PC.NURSE ---
1914- attempt made to start an IV. attempt unsuccessful.
[2025-05-08 20:31] LABS: Hematocrit 39.0 % (37.0-47.0); Hemoglobin 12.5 g/dL (12.2-16.2); Immature Granulocytes % 0.2 %; Mean Corpuscular HGB Conc 32.1 g/dL (31.8-35.4); Mean Corpuscular Hemoglobin 28.0 pg (27.0-31.2); Mean Corpuscular Volume 87.4 fl (81-99); Nucleated Red Blood Cells % 0 %; Platelet Count 286 K/mm3 (142-424); Red Blood Count 4.46 M/mm3 (4.20-5.40); Red Cell Distribution Width-SD 46.8 fL; White Blood Count 13.6 K/mm3 (4.8-10.8)
[2025-05-08] MEDS: IOPAMIDOL-370 (76%);100ML BOTTLE 80 ML IV (20:35)
[2025-05-08] MEDS: 0.9 % SODIUM CHLORIDE 50 ML VIAL IV ×2 (20:36→21:39)
[2025-05-08] MEDS: SODIUM CHLORIDE 0.9% 10ML SYR (RAD ONLY) 10 ML IV ×2 (20:36→21:39)
[2025-05-08 20:37] LABS: Cholesterol 222 mg/dl (140-200); HDL Cholesterol 72 mg/dl (40-60); Triglycerides 116 mg/dl (30-150)
[2025-05-08 20:38] LABS: Alanine Aminotransferase 25 U/L (12-78); Albumin Level 4.2 g/dl (3.5-5.0); Albumin/Globulin Ratio 1.5 (1.1-1.8); Alkaline Phosphatase 91 U/L (38-126); Anion Gap 15.6 mEq/L (5-15); Aspartate Amino Transferase 31 U/L (14-36); Bilirubin,Total 0.7 mg/dl (0.2-1.3); Blood Urea Nitrogen 24 mg/dl (7-17); Calcium 10.0 mg/dl (8.4-10.2); Carbon Dioxide 24 mmol/L (22.0-30.0); Chloride 101 mmol/L (98-107); Creatinine Clearance Estimated 42 mL/min (50-200); Creatinine,Serum 1.20 mg/dl (0.52-1.04); Estimated Glomerular Filt Rate 44 ml/min (>60); GFR (African American) 53 ML/MIN (>60); Globulin 2.8 g/dL (1.3-3.2); Glucose 121 mg/dl (74-100); Potassium 3.6 mmoL/L (3.5-5.1); Sodium 137 mmol/L (136-145); Total Protein,Serum 7.0 g/dl (6.3-8.2)
[2025-05-08 20:39] LABS: Activated Partial Thrombo Time 24.4 seconds (22.8-30.6); INR 1.05 (0.9-1.1); Prothrombin Time 11.6 seconds (10.1-12.5)
[2025-05-08 20:50] LABS: Troponin I < 0.01 ng/ml (0.00-0.034)
[2025-05-08 20:54] LABS: D-Dimer 1.38 ug/mL (0.0-0.5)
--- NOTE | 2025-05-08 20:58 | CT_ITS ---
PROCEDURE INFORMATION: Exam: CTA Chest With Contrast Exam date and time: 05/08/2025 9:34 PM Age: 74 years old Clinical indication: Other: Elevated d-dimer TECHNIQUE: Imaging protocol: Computed tomographic angiography of the chest with contrast. Exam focused on the arteries. 3D rendering (Not supervised by radiologist): MIP and/or 3D reconstructed images were created by the technologist. Radiation optimization: All CT scans at this facility use at least one of these dose optimization techniques: automated exposure control; mA and/or kV adjustment per patient size (includes targeted exams where dose is matched to clinical indication); or iterative reconstruction. Contrast material: ISOVUE; Contrast volume: 70 ml; Contrast route: INTRAVENOUS (IV); COMPARISON: CR XR CHEST PORTABLE 05/08/2025 8:25 PM FINDINGS: Pulmonary arteries: Normal. No pulmonary emboli. Aorta: Unremarkable. No aortic aneurysm. No aortic dissection. Lungs: Unremarkable. No consolidation. No masses. Pleural spaces: Unremarkable. No pneumothorax. No pleural effusion. Heart: Cardiomegaly.. No pericardial effusion. Lymph nodes: Unremarkable. No enlarged lymph nodes. Tiny left adrenal adenoma 1 cm. Bones/joints: Unremarkable. No acute fracture. Soft tissues: Unremarkable. IMPRESSION: No acute findings.
[2025-05-08 21:10] LABS: Microscopic, Urine URINE MICROSCOPIC (MICROSCOPIC)
[2025-05-08 21:16] LABS: Bilirubin,Urine Negative (Negative); Color,Urine YELLOW (Yellow); Glucose,Urine (UA) Negative (Negative); Ketones,Urine Negative (Negative); Leukocyte Esterase,Urine Negative (Negative); PH,Urine 6.0 (5.0-8.5); Protein,Urine Negative (Negative); Specific Gravity, Urine 1.010 (1.005-1.030); Urobilinogen,Urine 0.2 EU/dl (0.2)
[2025-05-08 21:34] LABS: Bacteria,Urine 1+ /lpf; Calcium Oxalate Crystals,Urine 1+ /lpf; Mucus,Urine 4+ /lpf; WBC,Urine 20-50 #/hpf (0-3)
[2025-05-08] MEDS: IOPAMIDOL-370 (76%);100ML BOTTLE 70 ML IV (21:39)
[2025-05-08 21:44] LABS: Amphetamine/Metha Screen,Urine Negative ng/ml (<1000); Barbiturates Screen,Urine Negative ng/ml (<200); Benzodiazepines Screen,Urine Negative ng/ml (<200); Methadone Screen,Urine Negative ng/ml (<300); Opiate Screen,Urine Negative ng/ml (<300); Phencyclidine Screen,Urine Negative ng/ml (<25)
[2025-05-08 21:54] VITALS: BP 194/92; PULSE 52; RESP 17; TEMP 36.6; O2SAT 95
--- NOTE | 2025-05-08 21:54 | PC.NURSE ---
Called report to LEX Moreno on Med/Surg unit
[2025-05-08 22:00] VITALS: BP 205/85; PULSE 54; RESP 16; TEMP 36.5; O2SAT 97; BMI 25.2
[2025-05-08 22:20] VITALS: PULSE 55
[2025-05-08] MEDS: ACETAMINOPHEN 325MG TAB 650 MG PO (22:47)
[2025-05-08] MEDS: AMLODIPINE 10MG TABLET 10 MG PO (22:50)
[2025-05-08 22:52] LABS: Coronavirus 19, PCR Not Detected (NotDetected); Influenza A, PCR Not Detected (NotDetected); Influenza B, PCR Not Detected (NotDetected)
[2025-05-08] MEDS: 0.9 % SODIUM CHLORIDE 1000ML 1,000 ML 75 ML IV (23:27)
[2025-05-08 23:48] LABS: Troponin I < 0.01 ng/ml (0.00-0.034)
--- NOTE | 2025-05-08 23:57 | P.HP_ITS ---
<Statement entered by Leo Buchanan MD - 05/09/25 16:13> Rounded on patient after nurse practitioner. Personally examined and interviewed patient. Agree with exam findings and care plan as documented. History of Present Illness *Admission Date: 05/08/25 *Reason for visit:: Generalized weakness *History of present illness: This is a 74-year-old female with a past medical history of dementia, hypertension, depression, anxiety who presents emergency department with her today for further evaluation of generalized weakness. ROS and history largely provided by as patient does have a history of dementia. He reports that around 2 p.m. today while helping Ms. Wiley to the bathroom he noticed a shuffling gait that she typically does not have. At that time she also reported some fullness in her throat. Neither the patient nor the appreciated any unilateral deficits at that time. She also reports on the evening of 05/07/2025 attempting to eat soup and noticed that she felt like she was having a harder time swallowing than normal. She denies any actual sore throat just felt that the sensation was odd. also noted that her blood pressure was more elevated today than typical with systolic in the 200s here in the emergency department. She has been undergoing care with Dr. Alva for similar chronic symptoms including ataxia and gait changes, memory loss, forgetfulness. Has had recent MRI of the brain with atrophy more pronounced in the frontoparietal regions. Given patient's evaluation was notable for significant hypertension and reported acutely worsening symptoms at 2 PM, she will be admitted for stroke rule out. She is outside of the window for any intervention and also has chronic symptoms that have been ongoing. She is admitted to the hospitalist service at this time. [facility] Disclaimer: The information contained in this section may have been updated after the patient was seen, as this information can be updated by other users. Medical History (Updated 05/09/25 @ 00:09 by LISA Coker) Dementia Anxiety Osteoporosis Depression Hypertension Surgical History H/O section History of cholecystectomy Family History Father Stroke Diabetes Mother Hypertension Alzheimer disease Other Asthma Heart attack Social History Smoking Status: Never smoker alcohol intake: never substance use type: denies use current occupational status: retired Travel in the last 8 weeks?: None household members: spouse housing: house Have you lived/traveled outside US in past 30 days?: No Contact w/someone who lives/traveled outside US past 30 days?: No Exposure to someone with infectious disease in past 14 days?: No Do you have a fever (greater than 100.4 F or 38 C)?: No Have you tested positive for COVID-19?: No Exposed to someone with COVID-19 in past 14 days?: No Do you have a sore throat?: No Do you have a cough?: No Do you have any weakness?: No Do you have any diarrhea?: No Are you experiencing any unusual bleeding?: No Do you have any muscle aches/pain?: No Do you have any abdominal pain?: No Are you experiencing loss of taste or smell?: No Other Medical History Have you received the Flu Vaccine for this season: Yes Have you received the Pneumonia Vaccine: Yes Review of Systems Review of Systems Review of systems:: pertinent systems reviewed and negative unless documented below Review of systems (narrative): Negative except for HPI Meds Home Medications and Allergies Home Medications ?Medication ?Instructions ?Recorded ?Confirmed ?Type aspirin 81 mg tablet,delayed 81 mg PO DAILY Heart dise ase 01/01/18 05/08/25 History release linaclotide 72 mcg capsule 72 mcg PO DAILY #30 caps 05/08/25 Rx (Linzess) memantine 10 mg tablet (Namenda) 10 mg PO BID #60 tabs 02/13/25 05/08/25 Rx cyclobenzaprine 10 mg tablet 10 mg PO HS PRN back pain 30 days 03/23/25 05/08/25 Rx #30 tabs fluoxetine 20 mg capsule 20 mg PO DAILY #90 caps 03/0105/08/25 Rx amlodipine 2.5 mg tablet 2.5 mg PO DAILY 05/08/2502/22 History bisoprolol fumarate 5 mg tablet 5 mg PO DAILY 05/08/25 05/08/25 History lisinopril 30 mg tablet 30 mg PO DAILY 05/08/2502/22 History omeprazole 20 mg capsule,delayed 20 mg PO DAILY 05/08/25 History release New Prescriptions to Start Prescriptions: Allergies Allergy/AdvReac Type Severity Reaction Status Date / Time Penicillins Allergy Intermediate I-HIVES Verified 02/13/25 13:28 Exam Data for Last 24 hours Vital signs and Labs for Last 24 Hours: Temp Pulse Resp BP Pulse Ox O2 Del Method 97.7 F 54 L 16 205/85 H 97 Room Air 05/08/25 22:00 05/08/25 22:00 05/08/25 22:00 05/08/25 22:00 05/08/25 22:00 05/08/25 23:00 Laboratory Results - last 24 hr 05/08/25 20:10: WBC 13.6 H, RBC 4.46, Hgb 12.5, Hct 39.0, MCV 87.4, MCH 28.0, MCHC 32.1, RDW 14.6, Plt Count 286, MPV 10.7 H, Neut % (Auto) 71.6, Lymph % (Auto) 22.0, Mckenzie % (Auto) 5.2, Eos % (Auto) 0.5, Baso % (Auto) 0.5, Neut # (Auto) 9.7 H, Lymph # (Auto) 3.0, Mckenzie # (Auto) 0.7, Eos # (Auto) 0.1, Baso # (Auto) 0.1, PT 11.6, INR 1.05, APTT 24.4, D-Dimer 1.38 H, Sodium 137, Potassium 3.6, Chloride 101, Carbon Dioxide 24, Anion Gap 15.6 H, BUN 24 H, Creatinine 1.20 H, Estimated Creat Clear 42, Estimated GFR 44 L, Est GFR ( Amer) 53 L, Glucose 121 H, Calcium 10.0, Total Bilirubin 0.7, AST 31, ALT 25, Alkaline Phosphatase 91, Troponin I < 0.01, Total Protein 7.0, Albumin 4.2, Globulin 2.8, Albumin/Globulin Ratio 1.5, Triglycerides 116, Cholesterol 222 H, LDL Cholesterol Direct 144.76 H, VLDL Cholesterol 23, HDL Cholesterol 72 H, Cholesterol/HDL Ratio 3.1, Plasma/Serum Alcohol < 10 05/08/25 20:59: Urine Color Yellow, Urine Appearance Clear, Urine pH 6.0, Ur Specific Laughlin 1.010, Urine Protein Negative, Urine Glucose (UA) Negative, Urine Ketones Negative, Urine Blood Negative, Urine Nitrate Negative, Urine Bilirubin Negative, Urine Urobilinogen 0.2, Ur Leukocyte Esterase Negative, Urine RBC 3-5, Urine WBC 20-50, Ur Squamous Epith Cells 3-5, Calcium Oxalate Crystal 1+, Urine Bacteria 1+, Urine Mucus 4+, Urine Opiates Screen Negative, Urine Methadone Screen Negative, Ur Barbituates Screen Negative, Ur Phencyclidine Scrn Negative, Ur Amphetamines Screen Negative, U Benzodiazepines Scrn Negative, Urine Cocaine Screen Negative, U Marijuana (THC) Screen Negative 05/08/25 23:00: Troponin I < 0.01 I & O for Last 24 hours: Intake & Output 05/05/25 05/06/25 05/07/25 05/08/25 23:59 23:59 23:59 23:59 Intake Total 150 / 150 Balance 150 / 150 Weight 62.732 kg Constitutional Constitutional: no acute distress *Routine HEENT Exam Head: Present normocephalic Eye: Present EOMI and PERRL ENT: Present mucous membranes moist *Routine Neck Exam Neck: Present supple; Absent lymphadenopathy *Routine Respiratory Exam Respiratory: Present CTA bilaterally *Routine Cardiovascular Exam Cardiovascular: Present RRR *Routine Abdominal Exam Abdominal: Present soft and normoactive bowel sounds; Absent tenderness *Routine Rectal Exam Rectal:: deferred *Routine Genitalia Exam Genitalia:: deferred *Routine Extremities Exam Extremities: Absent cyanosis, clubbing or edema *Routine Skin Exam Skin: Present warm; Absent rash *Routine Neurological Exam Neurological: Present alert and oriented X3 Comments: Cognitive delay with slowed speech but no signs of dysarthria Assessment and Plan *Assessment and plan (1) Generalized weakness: Status: Acute Category: Medical Code(s): R53.1 - Weakness (2) Hypertension: Status: Chronic Qualifiers: Hypertension type: primary hypertension Qualified Code(s): I10 - Essential (primary) hypertension Category: Medical Code(s): I10 - Essential (primary) hypertension (3) Anxiety: Status: Acute Category: Medical Code(s): F41.9 - Anxiety disorder, unspecified (4) Depression: Status: Acute Category: Medical Code(s): F32.A - Depression, unspecified Plan #Generalized weakness LKN hard to say given chronicity of symptoms but at very least, 2 PM today. Patient also endorses episode of swallowing difficulty last night eating soup. Will outside the window for any chemical thrombolysis No focal deficits noted on exam. Patient does have episodes of cognitive delay with difficulty with word finding but likely secondary to sequela of chronic cognitive impairment. Given the reported in symptoms by , will order MRI brain in the a.m. for stroke rule out. CT head CTA head and neck negative for LVO or stenosis A1c and lipid panel in a.m. If MRI positive, obtain echocardiogram Will allow for mild permissive hypertension given possible strokelike symptoms. Would like to keep blood pressure around 170 systolic. PT and OT Bedside swallow study passed, able to swallow liquids and pills. Would benefit from formal swallow if MRI positive #Hypertension Systolic blood pressure above 200 while the emergency department. Will give oral dose of lisinopril now and recheck blood pressure. Given stroke workup, we will shoot for systolic goal of 170 to allow for permissive perfusion Restart home medications once appropriate #Anxiety and depression #Dementia Seeing Dr. Alva in office for cognitive impairment.
[2025-05-09] VITALS: BP 142/73; PULSE 50; PULSE 57; RESP 16; TEMP 36.5; O2SAT 97
[2025-05-09 02:01] LABS: Troponin I < 0.01 ng/ml (0.00-0.034)
[2025-05-09 04:00] VITALS: BP 145/71; PULSE 54; PULSE 55; RESP 16; TEMP 36.4; O2SAT 98; BMI 25.9
--- NOTE | 2025-05-09 07:00 | MR_ITS ---
FINAL REPORT CLINICAL HISTORY: TIA work up COMPARISON: None FINDINGS: Multi planar MR imaging was obtained through the brain without contrast. The midline structures appear intact. There is no evidence of Chiari malformation. On T2 and flair axial images the brain parenchyma demonstrates moderately advanced signal abnormalities in the deep white matter, both periventricular and subcortical. On diffusion-weighted images there is no evidence of restricted diffusion. The visualized paranasal sinuses demonstrate normal signal voids. The seventh and eighth nerve root complexes are intact. IMPRESSION: Moderately advanced signal abnormalities in the deep white matter as described, most likely related to ischemic microvascular change. No evidence of restricted diffusion to indicate an acute infarct. Reviewed, Interpreted and Dictated by Joshua Negro MD Transcribed by Candis Ramirez Authenticated and [facility]
--- NOTE | 2025-05-09 08:03 | PC.NURSE ---
Patient to MRI at this time.
--- NOTE | 2025-05-09 08:03 | HMH.PTEV ---
Physical Therapy Evaluation Rehab PT IP Evaluation Start: 05/08/25 22:35 Freq: ONCE Status: Active Protocol: Document 05/09/25 07:57 MITCHEL (Rec: 05/09/25 08:03 MITCHEL [id number]) Subjective/History History History Per H&P: This is a 74-year-old female with a past medical history of dementia, hypertension, depression, anxiety who presents emergency department with her today for further evaluation of generalized weakness. ROS and history largely provided by as patient does have a history of dementia. He reports that around 2 p.m. today while helping Ms. Wiley to the bathroom he noticed a shuffling gait that she typically does not have. At that time she also reported some fullness in her throat. Neither the patient nor the appreciated any unilateral deficits at that time. She also reports on the evening of 05/07/2025 attempting to eat soup and noticed that she felt like she was having a harder time swallowing than normal. She denies any actual sore throat just felt that the sensation was odd. also noted that her blood pressure was more elevated today than typical with systolic in the 200s here in the emergency department. She has been undergoing care with Dr. Alva for similar chronic symptoms including ataxia and gait changes, memory loss, forgetfulness. Has had recent MRI of the brain with atrophy more pronounced in the frontoparietal regions. Given patient's evaluation was notable for significant hypertension and reported acutely worsening symptoms at 2 PM, she will be admitted for stroke rule out. She is outside of the window for any intervention and also has chronic symptoms that have been ongoing. She is admitted to the hospitalist service at this time . Subjective Subjective I am very independent PLOF: IND with functional mobility with intermittent use of SPC. No falls in the past 30 days. HOME: Lives in a home with 5 JONAS and 1 HR. ASSIST: able to provide supervision but is lifted to a 5 pound restriction d/t neck injury. [facility] How much help from another person do you currently need... Turning from your None back to your side while in a flat bed without using bedrails? Moving from lying on None back to sitting on the side of a flat bed without using bedrails? Moving to and from a None bed to a chair ( including a wheelchair)? Standing up from a None chair using your arms? (e.g., wheelchair, bedside chair) Walking in hospital None room? Climbing 3-5 steps A little with a railing? Mobility Score 23 Mobility Level [facility] Mobility 7 Walk 25 feet or more Mobility Calculator Rehab PT IP Eval Objective Appearance Patient Behavior Appropriate,Cooperative Patient Orientation Person,Situation Difficulty following none instructions Speech Pattern Clear Ambulation Patient Able to Yes Ambulate Ambulation Observation IP General Gait Antalgic Gait Pattern Observation Ambulation Distance 50 (feet) Ambulation Assistive None Device Ambulation Ability Supervision/Stand by Balance Ability to Arise Able, uses arms to help Sitting Balance Steady, safe Standing Balance Steady, wide stance Dynamic Sitting Good Balance Ability Dynamic Standing Good Balance Ability Transfers Bed Transfer Ability Independent Sit to Stand Bed Independent Transfer Ability Rehab PT IP prob,goals,plan Problems Date of Evaluation: 05/09/25 Rehab Potential Rehab Potential Innapropriate for Skilled Therapy Discharge Plan PT Discharge Plan Pt appears to be at her baseline mobility. Pt demo'd slow but safe ambulation without an AD or cueing. Skilled acute PT not indicated at this time d/t baseline mobility. PT recommending nursing staff continue getting pt up with assistance per activity orders. Pt most appropriate to d/c home with PT services to address generalized weakness. Eval Complexity Eval Charge Codes 31924 - Moderate Complexity PHYSICIAN CERTIFICATION: I certify the specified therapy services for Barb Wiley are required, authorized, and reviewed every 30 days.
--- NOTE | 2025-05-09 08:04 | HMH.PHAINT1 ---
Pharmacy Intervention Comments: MEDICATION RECONCILIATION COMPLETED ON PATIENT USING EXTERNAL FILL HISTORY FROM PHARMACY AND LIST FROM PCP OFFICE. -DANIELA MARTINEZ, JANID
--- NOTE | 2025-05-09 08:07 | HMH.PTEV ---
Physical Therapy Evaluation Rehab PT IP Evaluation Start: 05/08/25 22:35 Freq: ONCE Status: Complete Protocol: Document 05/09/25 07:57 MITCHEL (Rec: 05/09/25 08:03 MITCHEL [id number]) Subjective/History History History Per H&P: This is a 74-year-old female with a past medical history of dementia, hypertension, depression, anxiety who presents emergency department with her today for further evaluation of generalized weakness. ROS and history largely provided by as patient does have a history of dementia. He reports that around 2 p.m. today while helping Ms. Wiley to the bathroom he noticed a shuffling gait that she typically does not have. At that time she also reported some fullness in her throat. Neither the patient nor the appreciated any unilateral deficits at that time. She also reports on the evening of 05/07/2025 attempting to eat soup and noticed that she felt like she was having a harder time swallowing than normal. She denies any actual sore throat just felt that the sensation was odd. also noted that her blood pressure was more elevated today than typical with systolic in the 200s here in the emergency department. She has been undergoing care with Dr. Alva for similar chronic symptoms including ataxia and gait changes, memory loss, forgetfulness. Has had recent MRI of the brain with atrophy more pronounced in the frontoparietal regions. Given patient's evaluation was notable for significant hypertension and reported acutely worsening symptoms at 2 PM, she will be admitted for stroke rule out. She is outside of the window for any intervention and also has chronic symptoms that have been ongoing. She is admitted to the hospitalist service at this time . Subjective Subjective I am very independent PLOF: IND with functional mobility with intermittent use of SPC. No falls in the past 30 days. HOME: Lives in a home with 5 JONAS and 1 HR. ASSIST: able to provide supervision but is lifted to a 5 pound restriction d/t neck injury. [facility] How much help from another person do you currently need... Turning from your None back to your side while in a flat bed without using bedrails? Moving from lying on None back to sitting on the side of a flat bed without using bedrails? Moving to and from a None bed to a chair ( including a wheelchair)? Standing up from a None chair using your arms? (e.g., wheelchair, bedside chair) Walking in hospital None room? Climbing 3-5 steps A little with a railing? Mobility Score 23 Mobility Level [facility] Mobility 7 Walk 25 feet or more Mobility Calculator Rehab PT IP Eval Objective Appearance Patient Behavior Appropriate,Cooperative Patient Orientation Person,Situation Difficulty following none instructions Speech Pattern Clear Ambulation Patient Able to Yes Ambulate Ambulation Observation IP General Gait Antalgic Gait Pattern Observation Ambulation Distance 50 (feet) Ambulation Assistive None Device Ambulation Ability Supervision/Stand by Balance Ability to Arise Able, uses arms to help Sitting Balance Steady, safe Standing Balance Steady, wide stance Dynamic Sitting Good Balance Ability Dynamic Standing Good Balance Ability Transfers Bed Transfer Ability Independent Sit to Stand Bed Independent Transfer Ability Rehab PT IP prob,goals,plan Problems Date of Evaluation: 05/09/25 Rehab Potential Rehab Potential Innapropriate for Skilled Therapy Discharge Plan PT Discharge Plan Pt appears to be at her baseline mobility. Pt demo'd slow but safe ambulation without an AD or cueing. PT recommending pt continue using a cane or RW during ambulation at home d/t hx of falls in the summer to improve safety. Skilled acute PT not indicated at this time d/t baseline mobility. PT recommending nursing staff continue getting pt up with assistance per activity orders. Pt most appropriate to d/c home with PT services to address generalized weakness. Eval Complexity Eval Charge Codes 49383 - Moderate Complexity PHYSICIAN CERTIFICATION: I certify the specified therapy services for Barb Wiley are required, authorized, and reviewed every 30 days.
--- NOTE | 2025-05-09 08:26 | SW/DCPLANNER ---
I spoke w/ patient's this AM regarding discharge planning due to patient having dementia. PT/OT has been ordered to evaluate patient. Per patient's he takes care of patient at home and is w/ her 24-7. I did discuss options of placement vs home health w/ . voiced at this time he is not interested in either option. I informed family that I will follow up w/ them once PT/OT evaluation is completed. Discharge date is unknown at this time. CM will continue to follow up.
[2025-05-09] MEDS: MEMANTINE 10MG TABLET 10 MG PO (09:19)
[2025-05-09] MEDS: LISINOPRIL 10MG TABLET 30 MG PO (09:19)
[2025-05-09] MEDS: AMLODIPINE 2.5MG TABLET 2.5 MG PO (09:19)
[2025-05-09] MEDS: FLUOXETINE 20MG CAPSULE 20 MG PO (09:19)
[2025-05-09] MEDS: ASPIRIN EC 81MG TABLET 81 MG PO (09:19)
[2025-05-09] MEDS: BISOPROLOL 5MG TABLET 5 MG PO (09:19)
--- NOTE | 2025-05-09 09:44 | SW/DCPLANNER ---
Spoke with patient and her regarding home health services once patient is medically stable and ready for discharge. Patient and patient's is not interested in home health services at this time. Patient stated that she is good and believes she can get around with not therapy. Patient stated that when she gets home and feels like she needs it she will ask her primary care provider to order it for her. Patient stated that she is not interested in outpatient therapy either. Royce Suarez
--- NOTE | 2025-05-09 10:09 | P.DS_ITS ---
<Statement entered by Leo Buchanan MD - 05/09/25 13:18> Rounded on patient after nurse practitioner. Personally examined and interviewed patient. Agree with exam findings and care plan as documented. General Admission date:: 05/08/25 Discharge date: 05/09/25 HPI HPI HPI: This is a 74-year-old female with a past medical history of dementia, hypertension, depression, anxiety who presents emergency department with her today for further evaluation of generalized weakness. ROS and history largely provided by as patient does have a history of dementia. He reports that around 2 p.m. today while helping Ms. Wiley to the bathroom he noticed a shuffling gait that she typically does not have. At that time she also reported some fullness in her throat. Neither the patient nor the appreciated any unilateral deficits at that time. She also reports on the evening of 05/07/2025 attempting to eat soup and noticed that she felt like she was having a harder time swallowing than normal. She denies any actual sore throat just felt that the sensation was odd. also noted that her blood pressure was more elevated today than typical with systolic in the 200s here in the emergency department. She has been undergoing care with Dr. Alva for similar chronic symptoms including ataxia and gait changes, memory loss, forgetfulness. Has had recent MRI of the brain with atrophy more pronounced in the frontoparietal regions. Given patient's evaluation was notable for significant hypertension and reported acutely worsening symptoms at 2 PM, she will be admitted for stroke rule out. She is outside of the window for any intervention and also has chronic symptoms that have been ongoing. She is admitted to the hospitalist service at this time. Hospital Course Hospital Course Hospital Course: Ms. Wiley is a 74-year-old female who presented to the emergency department yesterday with complaints of generalized weakness and anxiety. Patient does have a primary medical history of HTN, dementia, GERD, DDD, depression/anxiety ,and osteoporosis. She reports that she went to [facility] yesterday and that is the first time she had been out in a while and began feeling very anxious. She states she felt fullness in her throat and very overwhelmed and confused feeling. She states that she felt like something was wrong so her brought her to the emergency department. Patient has been following with neurology, Dr. Alva for workup on her increased anxiety and dementia. At this time workup in the emergency department revealed elevated blood pressures, systolics 200s. Additionally CT of head, CTA of head and neck showed no acute findings. At this time Hospital medicine was consulted for admission for further stroke workup. Patient was admitted to our facility for generalized weakness, and possible TIA. Assessment day of discharge patient states she is back to baseline, oriented x 4, answers questions and interacts appropriately. Patient has no signs or symptoms of stroke, NIH is 0. Patient had brain MRI which showed moderately a dvanced signal abnormalities in the deep white matter, most likely related to ischemic microvascular changes. No evidence of restricted diffusion to indicate an acute infarct. Patient also had lab work which showed normal white count of 7.2, no anemia, no electrolyte abnormalities, normal kidney function, normal LFTs, serial troponins negative, cholesterol 196, LDL 120. Bedside swallow was performed to ensure swallowing ability was efficient, patient able to tolerate thin liquids normal diet without issues. PT/OT evaluation ordered, patient ambulated independently in the [place] without issues. Patient states she does have assistive devices at home if needed. Patient was given home blood pressure medication and repeat blood pressures significantly improved. Patient should continue blood pressure medication regimen of lisinopril 30 mg daily, bisoprolol 5 mg daily, and amlodipine 2.5 mg daily. Patient takes aspirin 81 mg daily and should continue at discharge. Will add a statin, atorvastatin 40 mg at bedtime. Additionally patient takes other chronic medications and should continue them at discharge: Omeprazole 20 mg daily, memantine 10 mg twice daily, Linzess 72 mcg daily, fluoxetine 20 mg daily, cyclobenzaprine as needed for back pain. Patient is established with neurology for her dementia and anxiety diagnosis. Patient will follow-up post discharge with neurology for further recommendations. Patient will also follow-up with her PCP. Total time spent on discharge 34 minutes in counseling, documentation, chart review, and direct care with patient. Exam Data for Last 24 hours Vital signs and Labs for Last 24 Hours: Temp Pulse Resp BP Pulse Ox O2 Del Method 97.6 F 54 L 16 145/71 H 98 Room Air 05/09/25 04:00 05/09/25 04:00 05/09/25 04:00 05/09/25 04:00 05/09/25 04:00 05/09/25 09:00 Laboratory Results - last 24 hr 05/08/25 20:10: WBC 13.6 H, RBC 4.46, Hgb 12.5, Hct 39.0, MCV 87.4, MCH 28.0, MCHC 32.1, RDW 14.6, Plt Count 286, MPV 10.7 H, Neut % (Auto) 71.6, Lymph % (Auto) 22.0, [place] % (Auto) 5.2, Eos % (Auto) 0.5, Baso % (Auto) 0.5, Neut # (Auto) 9.7 H, Lymph # (Auto) 3.0, [place] # (Auto) 0.7, Eos # (Auto) 0.1, Baso # (Auto) 0.1, PT 11.6, INR 1.05, APTT 24.4, D-Dimer 1.38 H, Sodium 137, Potassium 3.6, Chloride 101, Carbon Dioxide 24, Anion Gap 15.6 H, BUN 24 H, Creatinine 1.20 H, Estimated Creat Clear 42, Estimated GFR 44 L, Est GFR ( Amer) 53 L, Glucose 121 H, Calcium 10.0, Total Bilirubin 0.7, AST 31, ALT 25, Alkaline Phosphatase 91, Troponin I < 0.01, Total Protein 7.0, Albumin 4.2, Globulin 2.8, Albumin/Globulin Ratio 1.5, Triglycerides 116, Cholesterol 222 H, LDL Cholesterol Direct 144.76 H, VLDL Cholesterol 23, HDL Cholesterol 72 H, Cholesterol/HDL Ratio 3.1, Plasma/Serum Alcohol < 10 05/08/25 20:59: Urine Color Yellow, Urine Appearance Clear, Urine pH 6.0, Ur Specific [place] 1.010, Urine Protein Negative, Urine Glucose (UA) Negative, Urine Ketones Negative, Urine Blood Negative, Urine Nitrate Negative, Urine Bilirubin Negative, Urine Urobilinogen 0.2, Ur Leukocyte Esterase Negative, Urine RBC 3-5, Urine WBC 20-50, Ur Squamous Epith Cells 3-5, Calcium Oxalate Crystal 1+, Urine Bacteria 1+, Urine Mucus 4+, Urine Opiates Screen Negative, Urine Methadone Screen Negative, Ur Barbituates Screen Negative, Ur Phencycli dine Scrn Negative, Ur Amphetamines Screen Negative, U Benzodiazepines Scrn Negative, Urine Cocaine Screen Negative, U Marijuana (THC) Screen Negative 05/08/25 21:20: SARS-CoV-2 (PCR) Not detected, Influenza Type A (PCR) Not detected, Influenza Type B (PCR) Not detected, RSV (PCR) Not detected, Rhinovirus (PCR) Not detected 05/08/25 23:00: Troponin I < 0.01 05/09/25 01:16: Troponin I < 0.01 I & O for Last 24 hours: Intake & Output 05/06/25 05/07/25 05/08/25 05/09/25 23:59 23:59 23:59 23:59 Intake Total 150 / 150 Output Total 0 / 0 Balance 150 / 150 0 / 0 Weight 62.732 kg 64.047 kg Constitutional Constitutional: no acute distress, average body habitus, chronically ill appearing and cooperative *Routine HEENT Exam Head: Present normocephalic Eye: Present EOMI ENT: Present mucous membranes moist *Routine Neck Exam Neck: Present supple and full ROM; Absent lymphadenopathy *Routine Respiratory Exam Respiratory: Present CTA bilaterally and normal respiratory effort; Absent wheezes or crackles *Routine Cardiovascular Exam Cardiovascular: Present RRR, Normal S1 and Normal S2; Absent murmur *Routine Abdominal Exam Abdominal: Present soft and normoactive bowel sounds; Absent tenderness or distended *Routine Rectal Exam Patient deferred: visual exam *Routine Exam Patient deferred: external exam *Routine Extremities Exam Extremities: Present full ROM and pulses intact; Absent cyanosis, clubbing or edema *Routine Skin Exam Skin: Present intact and dry; Absent rash *Routine Neurological Exam Neurological: Present alert, oriented X3, vision grossly intact, hearing grossly intact and normal speech Routine Psychiatric Exam Comments: Endorses anxiety Results Data Completed and Pending Labs on day of discharge: Labs from last 24 hours 05/09/25 05/08/25 05/08/25 01:16 23:00 21:20 WBC RBC Hgb Hct MCV MCH MCHC RDW Plt Count MPV Neut % (Auto) Lymph % (Auto) [place] % (Auto) Eos % (Auto) Baso % (Auto) Neut # (Auto) Lymph # (Auto) [place] # (Auto) Eos # (Auto) Baso # (Auto) PT INR APTT D-Dimer Sodium Potassium Chloride Carbon Dioxide Anion Gap BUN Creatinine Estimated Creat Clear Estimated GFR Est GFR ( Amer) Glucose Calcium Total Bilirubin AST ALT Alkaline Phosphatase Troponin I < 0.01 < 0.01 Total Protein Albumin Globulin Albumin/Globulin Ratio Triglycerides Cholesterol LDL Cholesterol Direct VLDL Cholesterol HDL Cholesterol Cholesterol/HDL Ratio Urine Color Urine Appearance Urine pH Ur Specific [place] Urine Protein Urine Glucose (UA) Urine Ketones Urine Blood Urine Nitrate Urine Bilirubin Urine Urobilinogen Ur Leukocyte Esterase Urine RBC Urine WBC Ur Squamous Epith Cells Calcium Oxalate Crystal Urine Bacteria Urine Mucus Urine Opiates Screen Urine Methadone Screen Ur Barbituates Screen Ur Phencyclidine Scrn Ur Amphetamines Screen U Benzodiazepines Scrn Urine Cocaine Screen U Marijuana (THC) Screen Plasma/Serum Alcohol SARS-CoV-2 (PCR) Not detected Influenza Type A (PCR) Not detected Influenza Type B (PCR) Not detected RSV (PCR) Not detected Rhinovirus (PCR) Not detected 05/08/25 05/08/25 20:59 20:10 WBC 13.6 H RBC 4.46 Hgb 12.5 Hct 39.0 MCV 87.4 MCH 28.0 MCHC 32.1 RDW 14.6 Plt Count 286 MPV 10.7 H Neut % (Auto) 71.6 Lymph % (Auto) 22.0 [place] % (Auto) 5.2 Eos % (Auto) 0.5 Baso % (Auto) 0.5 Neut # (Auto) 9.7 H Lymph # (Auto) 3.0 [place] # (Auto) 0.7 Eos # (Auto) 0.1 Baso # (Auto) 0.1 PT 11.6 INR 1.05 APTT 24.4 D-Dimer 1.38 H Sodium 137 Potassium 3.6 Chloride 101 Carbon Dioxide 24 Anion Gap 15.6 H BUN 24 H Creatinine 1.20 H Estimated Creat Clear 42 Estimated GFR 44 L Est GFR ( Amer) 53 L Glucose 121 H Calcium 10.0 Total Bilirubin 0.7 AST 31 ALT 25 Alkaline Phosphatase 91 Troponin I < 0.01 Total Protein 7.0 Albumin 4.2 Globulin 2.8 Albumin/Globulin Ratio 1.5 Triglycerides 116 Cholesterol 222 H LDL Cholesterol Direct 144.76 H VLDL Cholesterol 23 HDL Cholesterol 72 H Cholesterol/HDL Ratio 3.1 Urine Color Yellow Urine Appearance Clear Urine pH 6.0 Ur Specific [place] 1.010 Urine Protein Negative Urine Glucose (UA) Negative Urine Ketones Negative Urine Blood Negative Urine Nitrate Negative Urine Bilirubin Negative Urine Urobilinogen 0.2 Ur Leukocyte Esterase Negative Urine RBC 3-5 Urine WBC 20-50 Ur Squamous Epith Cells 3-5 Calcium Oxalate Crystal 1+ Urine Bacteria 1+ Urine Mucus 4+ Urine Opiates Screen Negative Urine Methadone Screen Negative Ur Barbituates Screen Negative Ur Phencyclidine Scrn Negative Ur Amphetamines Screen Negative U Benzodiazepines Scrn Negative Urine Cocaine Screen Negative U Marijuana (THC) Screen Negative Plasma/Serum Alcohol < 10 SARS-CoV-2 (PCR) Influenza Type A (PCR) Influenza Type B (PCR) RSV (PCR) Rhinovirus (PCR) DS: Diagnosis Discharge Diagnosis (1) Generalized weakness: Status: Acute Code(s): R53.1 - Weakness (2) Hypertension: Status: Chronic Code(s): I10 - Essential (primary) hypertension Qualifiers: Hypertension type: primary hypertension Qualified Code(s): I10 - Essential (primary) hypertension (3) Anxiety: Status: Acute Code(s): F41.9 - Anxiety disorder, unspecified (4) Depression: Status: Acute Code(s): F32.A - Depression, unspecified Meds Home Medications and Allergies Home Medications ?Medication ?Instructions ?Recorded ?Confirmed ?Type aspirin 81 mg tablet,delayed 81 mg PO DAILY 01/01/18 1 07/09/24 History release linaclotide 72 mcg capsule 72 mcg PO DAILY #30 caps 05/08/25 Rx (Linzess) fluoxetine 20 mg capsule 20 mg PO DAILY #90 caps 03/0105/08/25 Rx amlodipine 2.5 mg tablet 2.5 mg PO DAILY 05/08/2502/22 History bisoprolol fumarate 5 mg tablet 5 mg PO DAILY 05/08/25 05/08/25 History lisinopril 30 mg tablet 30 mg PO DAILY 05/08/2502/22 History omeprazole 20 mg capsule,delayed 20 mg PO DAILY 05/08/25 History release atorvastatin 40 mg tablet 40 mg PO HS 30 days #30 tabs 05/09/25 Rx cyclobenzaprine 10 mg tablet 10 mg PO HSP PRN back sudeep n 05/09/25 05/09/25 History memantine 10 mg tablet 10 mg PO BID 05/09/25 History New Prescriptions to Start Prescriptions: Leo Guardado Allergies Allergy/AdvReac Type Severity Reaction Status Date / Time Penicillins Allergy Intermediate I-HIVES Verified 02/13/25 13:28 Discharge Plan Disposition Patient Disposition: Home, Self-Care Condition: Fair Follow up Plan Follow up with: Ro Rider APRN [Primary Care Provider, Medical] - 05/16/25 2:30 pm Kristine Alva MD [Staff Physician, Neurology] - 05/29/25 8:30 am Prescriptions/Medication Reconciliation: New atorvastatin 40 mg Tablet 40 mg PO HS 30 Days Qty: 30 0RF Continued Linzess 72 mcg capsule 72 mcg PO DAILY Qty: 30 2RF fluoxetine 20 mg capsule 20 mg PO DAILY Qty: 90 1RF aspirin 81 MG tablet,delayed release (DR/EC) 81 mg PO DAILY bisoprolol fumarate 5 mg tablet 5 mg PO DAILY Rx Instructions: Take 1 tablet by mouth once daily for blood pressure lisinopril 30 mg tablet 30 mg PO DAILY Rx Instructions: Take 1 tablet by mouth once daily for blood pressure omeprazole 20 mg capsule,delayed release(DR/EC) 20 mg PO DAILY Rx Instructions: TAKE 1 CAPSULE BY MOUTH ONCE DAILY FOR GERD amlodipine 2.5 mg tablet 2.5 mg PO DAILY Rx Instructions: Take 1 tablet by mouth once daily for blood pressure memantine 10 mg tablet 10 mg PO BID cyclobenzaprine 10 mg tablet 10 mg PO HSP PRN (Reason: back pain) Problem Reconciliation Problems Reviewed?: Yes Patient Discharge Instructions ACTIVITY: Continue current activity DIET: continue same diet Patient Instructions: Transient Ischemic Attack, Depression, High Blood Pressure, DI for Anxiety in Adults, DI for Fatigue Print Language: Brazilian Providers Primary Care Provider: Ro Rider Admit Provider: Leo Buchanan Attending Provider: Leo Buchanan
[2025-05-09 10:18] LABS: Hematocrit 37.7 % (37.0-47.0); Hemoglobin 11.9 g/dL (12.2-16.2); Immature Granulocytes % 0.3 %; Mean Corpuscular HGB Conc 31.6 g/dL (31.8-35.4); Mean Corpuscular Hemoglobin 27.8 pg (27.0-31.2); Mean Corpuscular Volume 88.1 fl (81-99); Nucleated Red Blood Cells % 0 %; Platelet Count 263 K/mm3 (142-424); Red Blood Count 4.28 M/mm3 (4.20-5.40); Red Cell Distribution Width-SD 47.3 fL; White Blood Count 7.2 K/mm3 (4.8-10.8)
[2025-05-09 10:52] LABS: Anion Gap 12.6 mEq/L (5-15); Blood Urea Nitrogen 14 mg/dl (7-17); Calcium 9.7 mg/dl (8.4-10.2); Carbon Dioxide 23 mmol/L (22.0-30.0); Chloride 106 mmol/L (98-107); Cholesterol 196 mg/dl (140-200); Creatinine Clearance Estimated 51 mL/min (50-200); Creatinine,Serum 1.00 mg/dl (0.52-1.04); Estimated Glomerular Filt Rate 54 ml/min (>60); GFR (African American) 66 ML/MIN (>60); Glucose 114 mg/dl (74-100); HDL Cholesterol 60 mg/dl (40-60); Magnesium 1.7 mg/dl (1.6-2.3); Potassium 3.6 mmoL/L (3.5-5.1); Sodium 138 mmol/L (136-145); Triglycerides 96 mg/dl (30-150)
[2025-05-09 12:57] LABS: Hemoglobin A1C 5.1 % (4.0-6.0)
--- NOTE | 2025-05-10 10:16 | SW/DCPLANNER ---
Spoke with patient's on the phone. Patient's stated that she is doing good. Patient's stated that she is aware of her upcoming appointments. Patient's stated that they were able to merchandise pickup/receiving associate her new medicine from [facility]. Patient's stated that they have no concerns or questions at this time. Royce Suarez
== END 2025-05-09 11:47 | disposition home or self-care (01) ==
LOC: ER 16:15 → 2ND 21:23
PROVIDERS: Nurse Practitioner; Nurse Practitioner Acute Care; Admitting Provider Internal Medicine Adolescent Medicine; Emergency Provider Student in an Organized Health Care Education/Training Program; PCP Nurse Practitioner Family; Visit Provider Internal Medicine Adolescent Medicine
DX: R53.1 Weakness (principal); I10 Essential (primary) hypertension; F41.9 Anxiety disorder, unspecified; F32.A Depression, unspecified; F03.90 Unspecified dementia, unspecified severity, without behavioral disturbance, psychotic disturbance, mood disturbance, and anxiety; M81.0 Age-related osteoporosis without current pathological fracture; Z90.49 Acquired absence of other specified parts of digestive tract; Z88.0 Allergy status to penicillin; Z79.899 Other long term (current) drug therapy; Z79.82 Long term (current) use of aspirin; R00.2 Palpitations; R41.3 Other amnesia
CPT/HCPCS: 36415; 70450; 70496; 70498; 70551; 71045; 71275; 80048; 80053; 80061; 80307; 80320; 81001; 83036; 83735; 84484; 85025; 85378; 85610; 85730; 87086; 87631; 93005; 97162; 97165; 99284; G0378; J7030; Q9967

== ENCOUNTER 2025-05-22 09:12 | Outpatient (CLI) | payer MEDICARE, SELFPAY ==
--- OUTSIDE RECORDS SUMMARY | 2025-05-22 09:16 | XMS_ITS | Encounter Summary ---
Author Organization [employer] ([place], [place], [place], [place], [place]) Address [address] [place] [address] Care Team Providers Care Cv Tech Name Role Phone Ro Rider APRN Primary Care Provider Encounter Details Date Type Department Care Team (Latest Contact Info) Description 04/04/2025 Travel Social History Tobacco Use Types Packs/Day Years Used Date Smoking Tobacco: Never Assessed Comments Unknown Sex and Gender Information Value Date Recorded Sex Assigned at Not on file Legal Sex Female 8:28 AM CDT Gender Identity Not on file Sexual Orientation Not on file documented as of this encounter Functional Status * Communicable Disease Screening Question Answer Date of Assessment Author Have you been in contact wit h someone who was sick? No / Unsure 04/04/2025 10:30 AM Chad Warren i Do you have any of the following new or worsening symptoms? None of these 04/04/2025 10:30 AM Santa Warren documented as of this encounter Plan of Treatment Not on file documented as of this encounter Visit Diagnoses Not on filedocumented in this encounter Care Teams Cv Tech Relationship Specialty Start Date End Date Ro Rider APRN [address] [address] PCP - General Nurse Practitioner 04/04/25 documented as of this encounter
--- OUTSIDE RECORDS SUMMARY | 2025-05-22 09:16 | XMS_ITS | Clinical Summary ---
Author Organization [employer] ([place], [place], [place], [place], [place]) Address [address] [place] [address] Care Team Providers Care Printing Technician Name Role Phone Ro Rider HOMEWORKER Primary Care Provider [phone] Encounters * This document contains information received from the source organization and may not represent a complete record from that organization. Date Type Department Care Team Description 04/04/2025 Travel from Last 3 Months Social History Tobacco Use Types Packs/Day Years Used Date Smoking Tobacco: Never Assessed Comments Unknown Sex and Gender Information Value Date Recorded Sex Assigned at Not on file Legal Sex Female 8:28 AM CDT Gender Identity Not on file Sexual Orientation Not on file Plan of Treatment Health Maintenance Due Date Last Done Comments CT Colonography 1951 Colonoscopy 1951 Colorectal Cancer Screening 1951 DXA SCAN 1951 FOBT/FIT 1951 Fit-DNA (Cologuard) 1951 Sigmoidoscopy 1951 Tobacco Cessation Counseling and Screening (12+) 1963 Hepatitis C Screening 1969 Breast Cancer Screening 1991 Pneumococcal 50+ years (1 of 1 - PCV) 2001 DTAP/TDAP/TD VACCINES (2 - T d or Tdap) 08/02/2006 08/02/1996 Falls Risk Screening 05/31/2024 Medicare IPPE (Welcome to Medicare) [id number] 05/31/2024 COVID-19 VACCINE (2023-2 5 season) 2025 03/20/2024, 04/26/2023, 03/23/2022, Additional history exists Influenza Vaccine (#1) 2025 , 04/06/2023, 04/08/2022, Additional history exists Respiratory Syncytial Virus (RSV) Adult or (1 - 1-dose 75+ series) 2026 Shingles Vaccine (Zoster) Completed 07/18/2019, Insurance [facility] [address] ACCESS O MAP Care Teams Printing Technician Relationship Specialty Start Date End Date Ro Rider, MAGALY [address] [place] [id number] PCP - General Nurse Practitioner 04/04/25
--- OUTSIDE RECORDS SUMMARY | 2025-05-22 09:16 | XMS_ITS | Referral Summary ---
Author Organization [employer] ([place], [place], [place], [place], [place]) Address [address] [place] [address] Care Team Providers Care Sound Assistant Name Role Phone Ro Rider APRN Primary Care Provider Encounters * This document contains information received [...] Orientation Not on file Plan of Treatment Not on file Insurance [facility] ACCESS O MAP Care Teams Sound Assistant Relationship Specialty Start Date End Date Ro Rider APRN [address] [id number] PCP - General Nurse Practitioner 04/04/25
--- NOTE | 2025-05-22 11:15 | CA_ITS ---
FINAL REPORT CLINICAL HISTORY: stroke-like symptoms, abnormal gait, verbal disturbance x 2-3 weeks ago. CTA neck performed 05/08/25. HTN, HLD. FINDINGS: RIGHT CAROTID: CCA PSV -57 cm/sec ICA PSV -98 cm/sec ICA/CCA PSV ratio -2.41. Comments: Minimal plaque disease is noted. LEFTCAROTID: CCA PSV -84. cm/sec ICA PSV -71. cm/sec ICA/CCA PSV ratio -1.24. Comments: Minimal plaque disease is noted. Antegrade flow is seen within the vertebral arteries. IMPRESSION: Carotid stenosis classified less than 50% Reviewed, Interpreted and Dictated by Yvette Fu MD Transcribed by Magdalene Browne Authenticated and [facility]
[2025-05-23 12:26] LABS: Testosterone,Total 26 ng/dL (3-67)
[2025-05-23 16:12] LABS: Cortisol,AM 13.6 ug/dL (6.2-19.4)
[2025-05-30 14:50] LABS: Renin Activity, Plasma < 0.167 ng/mL/hr (0.167-5.380)
[2025-06-03 18:14] LABS: Dopamine, Plasma < 10.0 pg/mL (0.0-36.7); Epinephrine, Plasma 13.8 pg/mL (0.0-55.4); Norepinephrine, Plasma 566 pg/mL (115-524)
== END 2025-05-22 23:59 | disposition home or self-care (01) ==
LOC: RT 09:14
PROVIDERS: PCP Nurse Practitioner Family; Visit Provider Nurse Practitioner Family
DX: I65.23 Occlusion and stenosis of bilateral carotid arteries (principal); D35.00 Benign neoplasm of unspecified adrenal gland
CPT/HCPCS: 36415; 82024; 82088; 82384; 82533; 82627; 83835; 84244; 84403; 93880